=== PATIENT | female | born 1960 | race Caucasian/White ===

== ENCOUNTER 2018-04-13 21:03 | Inpatient (IN) | payer OTHER, SELFPAY ==
[2018-04-13] VITALS (8 sets, daily range): BP systolic 93–149; BP diastolic 56–87; PULSE 75–81; RESP 13–20; TEMP 35.9–36.2; O2SAT 97–100; BMI 37.2
--- NOTE | 2018-04-13 21:07 | CT_ITS ---
STUDY: CT BRAIN WITHOUT CONTRAST REASON FOR EXAM: Female, 57 years old. Found unresponsive. RADIATION DOSAGE (If Supplied By Facility): CTDIvol = ( 44.99 ) mGy, DLP = ( 779.24 ) mGycm TECHNIQUE: Transaxial CT imaging of the brain was performed without administration of intravenous contrast material. Individualized dose optimization techniques were used for this CT. COMPARISON: None. FINDINGS: Normal soft tissue structures. Normal calvarium. Normal size ventricles and extra-axial spaces for the patient's age. Normal white matter tracts of the cerebral hemispheres. Normal basal ganglia and thalami. Normal brainstem. Normal cerebellum. There is no intracranial hemorrhage. There are no findings of an acute ischemic infarction. Normal visualized paranasal sinuses. CT/Brain/Head without Contrast IMPRESSION: No acute intracranial process. Electronically Signed: Lauren Fabian MD at 22:14 EDT Tel , Service support ,
--- NOTE | 2018-04-13 21:07 | RAD_ITS ---
STUDY: X-RAY CHEST REASON FOR EXAM: Female, 57 years old. Unresponsive. TECHNIQUE: Portable upright COMPARISON: None. FINDINGS: The lungs are clear and expanded. There is no demonstrated pleural abnormality. Normal size heart. Normal mediastinum and fatimah. Normal visualized pulmonary arteries. Normal visualized aortic arch and descending thoracic aorta. Normal visualized thoracic spine. Normal visualized ribs, clavicles, and shoulders. There is no demonstrated abnormality of the visualized soft tissue structures of the upper abdomen. RAD/Chest 1 View (Portable) IMPRESSION: No acute cardiopulmonary process. Electronically Signed: Lauren Fabian MD at 21:46 EDT Tel , Service support ,
--- NOTE | 2018-04-13 21:08 | EKG12_ITS ---
Test Reason : CP Blood Pressure : / mmHG Vent. Rate : 078 BPM Atrial Rate : 078 BPM P-R Int : 174 ms QRS Dur : 090 ms QT Int : 446 ms P-R-T Axes : 068 029 100 degrees QTc Int : 508 ms Normal sinus rhythm Prolonged QT Abnormal ECG Confirmed by ANNMARIE VALDES ([id number]), editor sound ILIA MENDIOLA ([id number]) on 04/26/2018 5:53:12 PM Referred By: DR. VALADEZ Confirmed By:ANNMARIE VALDES
[2018-04-13 21:19] LABS: Absolute Lymphocyte Count 3.07 X10^3/ul (0.83-4.51); Absolute Neutrophil Count 5.2 X10^3/uL (2.0-7.7); Basophil# 0.04 X10^3/uL; Basophil% 0.4 % (0-1); Eosinophil# 0.25 X10^3/uL; Eosinophils% 2.6 % (0-5); Hematocrit 29.8 % (37-47); Hemoglobin 8.2 g/dl (12.0-15.0); Lymphocyte # 3.07 X10^3/ul (4.0); Lymphocyte % 32.3 % (19-41); Mean Corp Hgb Conc 27.5 g/gl (32-36); Mean Corpuscular Volume 61.8 fL (81-99); Mean Platelet Vol. 9.2 fl (6.2-12.0); Monocyte# 0.94 X10^3/uL; Monocyte% 9.9 % (0-10); Neutrophil # 5.19 X10^3/uL (2.7-7.7); Neutrophil % 54.6 % (47-70); Platelet Count 393 K/mm3 (150-450); RBC Distribution Width CV 19.5 % (11.6-14.6); RBC Distribution Width SD 43.6 fl (35.1-43.9); Red Blood Count 4.82 M/mm3 (4.2-5.4); White Blood Count 9.5 K/mm3 (4.4-11.0)
[2018-04-13 21:21] LABS: POSITIVE COUNT NO; POSITIVE DIFFERENTIAL NO
[2018-04-13 21:22] LABS: Differential Indicated SCAN CRITERIA MET; POSITIVE MORPHOLOGY YES
[2018-04-13 21:27] LABS: International Normalized Ratio 1.2; Partial Thromboplast Time 21.3 Seconds (24.1-36.2); Prothrombin Time (Protime)PT. 14.8 SECONDS (11.7-14.9)
[2018-04-13] MEDS: 0.9% Normal Saline 1,000 ML 150 ML IV ×2 (21:30→23:14)
[2018-04-13 21:40] LABS: Allen Test POS; Base Excess -8 mmol/L (-2 to +2); Bicarbonate 18.5 mmol/L (22-26); Blood Gas Specimen Type ART; O2 Delivery Device Nasal Can; PO2 94 mmHG (75-100); SITE R Radial; SO2 96 % (95-99); Time Given 2135; Total Carbon Dioxide 20 mmol/L; pCO2 38.3 mmHg (35-45); pH 7.29 (7.35-7.45)
[2018-04-13 21:44] LABS: Anisocytosis 2+; Hypochromasia 1+; Microcytosis 2+; Platelet Estimate ADEQUATE (ADEQ); Platelet Morphology LARGE
[2018-04-13 21:45] LABS: Ovalocyte RARE
[2018-04-13 21:47] LABS: ALB/GLOB Ratio 0.8 RATIO (0.9-2.4); AST(SGOT) 23 U/L (15-37); Alanine Aminotransfer ALT/SGPT 25 U/L (13-56); Albumin, Serum 3.5 g/dL (3.2-5.0); Alkaline Phosphatase 151 U/L (45-117); Anion Gap 14 (5-15); BUN 20 mg/dL (7-18); BUN/Creat Ratio 18.7 RATIO (10-20); Calcium,Total 8.2 mg/dL (8.5-10.1); Chloride 106 mmol/L (98-107); Creatinine, Serum 1.07 mg/dL (0.55-1.02); EST Glomerular Filtration Rate 56 mL/min (>60); Est Glom Filt Rate - Afr Amer 67 mL/min (>60); Estimated Creatinine Clearance 48.88 ml/min; Globulin 4.4 g/dL (2.2-4.2); Glucose 44 mg/dL (74-106); Lipase 79 U/L (73-393); Potassium 3.3 mmol/L (3.5-5.1); Protein, Total 7.9 g/dL (6.4-8.2); Sodium Level 140 mmol/L (136-145)
[2018-04-13 21:48] LABS: Bacteria 0 SEEN /hpf (None Seen); Red Blood Cells-Urine 0 SEEN /hpf (0-5)
[2018-04-13] MEDS: Dextrose 50%-Water 25 GM/50 ML DISP.SYRIN IV (21:50)
--- NOTE | 2018-04-13 21:50 | ED.RN ---
AWARE OF BS 44
[2018-04-13 21:53] LABS: Acetaminophen (Tylenol) Level < 2.0 ug/mL (10.0-30.0); Salicylate < 1.7 mg/dL (2.8-20.0)
[2018-04-13 22:00] LABS: Color, Urine Yellow (Yellow); Glucose, Dipstick 100 mg/dl (Normal); Ketone-Dipstick 5 mg/dl (Negative); Leukocyte Esterase-Dipstick Negative /ul (Negative); Nitrite-Dipstick Negative (Negative); Occult Blood-Urine Negative /ul (Negative); Protein-Dipstick 15 mg/dl (Negative); Urine Bilirubin Dipstick Negative (Negative); Urine Clarity Sl. Cloudy (Clear); Urine Urobilinogen 1 mg/dl (Normal)
[2018-04-13 22:14] LABS: Hyaline Cast 10-25 SEEN /lpf (0-5)
[2018-04-13 22:19] LABS: Iron 11 ug/dL (50-170); Iron Binding Capacity,Total 522 ug/dL (250-450); PERCENT IRON SATURATION 2.1 % (15.0-55.0)
[2018-04-13 22:19] LABS: Mucous, Urine 2+ /hpf (<or=2+); Squamous Epithelial Cells - UA 0-5 SEEN /hpf (5-10); White Blood Cells 0-5 SEEN /hpf (0-5)
[2018-04-13 22:21] LABS: Bedside Glucose 170 mg/dL (70-110)
[2018-04-13] MEDS: Etomidate 20 MG/10 ML Vial IV (22:28)
[2018-04-13] MEDS: Rocuronium Bromide 50 MG/5 ML Vial 100 MG IV (22:29)
[2018-04-13 22:32] LABS: Amphetamine Urine VISTA NEGATIVE (<1000 ng/mL); Barbiturate Urine VISTA NEGATIVE (< 200 ng/mL); Benzodiazepine Urine VISTA POSITIVE (< 200 ng/mL); Cocaine Urine VISTA NEGATIVE (< 300 ng/mL); Ecstacy Urine VISTA NEGATIVE (< 500 ng/mL); Methadone Urine VISTA NEGATIVE (< 300 ng/mL); PCP Urine VISTA NEGATIVE (< 25 ng/mL); THC Urine VISTA NEGATIVE (< 50 ng/mL); Vista UDS pH Range 5
[2018-04-13 22:32] LABS: Lactic Acid 5.7 mmol/L (0.4-2.0)
--- NOTE | 2018-04-13 22:33 | RAD_ITS ---
STUDY: X-RAY CHEST REASON FOR EXAM: Female, 57 years old. Endotracheal tube and orogastric tube placement. TECHNIQUE: Portable frontal COMPARISON: April 13, 2018 at 9:14 PM FINDINGS: There is an endotracheal tube in place with its tip within the proximal right mainstem bronchus. There is an orogastric tube with its tip beyond the inferior margin of the image. No new focal consolidation seen. Normal size heart. Normal mediastinum and fatimah. Normal visualized pulmonary arteries. Normal visualized aortic arch and descending thoracic aorta. Normal visualized thoracic spine. Normal visualized ribs, clavicles, and shoulders. There is no demonstrated abnormality of the visualized soft tissue structures of the upper abdomen. RAD/Chest 1 View (Portable) IMPRESSION: Endotracheal tube within the expected region of the proximal mainstem bronchus, recommend retracting the endotracheal tube by 4 to 5 cm. Oral gastric tube tip beyond the inferior margin of the image, recommend repeat imaging including more of the mid abdomen. Electronically Signed: Lauren Fabian MD at 23:00 EDT Tel , Service support ,
--- NOTE | 2018-04-13 22:40 | ED.RN ---
DR. VALADEZ MADE AWARE OF LACTIC ACID 5.7.
[2018-04-13] MEDS: Propofol 10MG/Ml 1,000 MG/100 ML Bottle 2.949 MG CONT INF (22:59)
--- NOTE | 2018-04-13 23:04 | ED.VISSUMM ---
- ER Visit Summary Date of Service: 04/13/18 Chief Complaint: Unresponsive History of Present Illness: The patient is a 57 F who reportedly got into a argument with her daughter over the phone. Shortly thereafter she went into the bedroom. The next time he has been saw the patient she was speaking unintelligibly. She progressively became increasingly less responsive and eventually squad was called. Unknown what she took. She reports that she has had alcohol. Patient cannot provide information. It is not clear what the patient took or how much. Family does bring a bag of medications and that belonged to the patient. The tells me that she has Valium at home but this is not in the bag of medicines. There are numerous medications in this bag but it is unclear of exactly what she is taking. Physical Examination: Afebrile vital signs are stable Gen: Well-nourished well-developed Head: Normocephalic atraumatic Eyes: Perrl EOMI pupils are 3 mm bilaterally and sluggishly reactive ENT: TMs clear no rhinorrhea moist mucous membranes there is minimal gag. Neck: Supple no lymphadenopathy no JVD nontender CVS: Regular rate rhythm no murmurs normal S1-S2 Respiratory: No distress clear to auscultation bilaterally chest nontender Abdomen: Soft nontender nondistended normal bowel sounds no masses Back: Nontender Extremity: Nontender no edema Skin: Normal color no rash Neuro: Patient is stuporous. She does move all 4 extremities at times. Cold caloric testing shows minimal response to it Psych: Unable to assess Test Results: EKG shows a sinus rhythm at a rate of 78. Chest x-ray is no acute disease. Head CT negative. Hemoglobin 8.2 with a very low MCV. Iron studies were ordered. Troponin negative. Lactic acid 5.7. Ketones negative. Glucose at 44. Alcohol 152. Urine drugs abuse positive for benzodiazepines. Initial ABG showed a pH of 7.29 and bicarbonate 18 PCO2 of 38.3. PaO2 of 94. Emergency Department Course and Treatment: Patient became even less responsive when she came back from head CT. Decision was made to intubate her to protect her airway. Patient was intubated using etomidate and rocuronium. A 8-0 endotracheal tube was passed on the first attempt without any difficulty and secured in place at 24 cm. Patient has required very minimal sedation. She has been receiving IV fluids. Amp of D50 was given and repeat blood sugar was 179. This came down to 102. The next blood sugars currently pending. We will be checking every hour blood sugars. Family brought in a trash bag of her medications. She takes Effexor and Ritalin. Impression: 1. Alcohol intoxication 2. Unknown drug overdose 3. Metabolic acidosis 4. Anemia 5. Hyperglycemia 6. Intubation by physician This note was generated with [employer] dictation software. It may contain incorrect words, spelling, and punctuation that were not noted in review of the chart prior to signing ED Disposition - Plan for ED Patient: Chief Complaint: Unresponsive Referrals: Care Physician,No Primary [Primary Care Provider] -
[2018-04-13 23:16] LABS: Bedside Glucose 102 mg/dL (70-110)
[2018-04-13 23:51] LABS: Allen Test POS; Base Excess -5 mmol/L (-2 to +2); Bicarbonate 20.7 mmol/L (22-26); Blood Gas Specimen Type ART; FI02 35; Mode A-C; O2 Delivery Device Vent; PEEP 5; PO2 144 mmHG (75-100); RR 14; SITE L Radial; SO2 99 % (95-99); Time Given 2340; Total Carbon Dioxide 22 mmol/L; Vt 450; pCO2 39.8 mmHg (35-45); pH 7.33 (7.35-7.45)
--- NOTE | 2018-04-13 23:56 | HP.PCM_ITS ---
Problem List (1) Drug overdose Status: Acute Qualifiers: Encounter type: initial encounter (2) Alcohol intoxication Status: Acute Qualifiers: Complication of substance-induced condition: with unspecified complication Qualified Code(s): F10.929 - Alcohol use, unspecified with intoxication, unspecified History of Present Illness Date of Admission: 04/13/18 Chief Complaint: Altered mental status, suspected drug overdose, alcohol intoxication The patient is a 57 year old F who was seen in the emergency room at [facility] after being brought in by squad at the direction of her whom she lives with. states that he lives in the same house with his but has minimal contact with her, recently she was arrested for spousal abuse against him and was given probation, recently he states that she violated her probation by testing positive for benzodiazepines- states that she has been seeing a psychologist for many years and recently last year her psychologist retired and her new psychologist recommended stopping some of her medications such as Valium that she had been on for many years. Today, according to the , the patient had a conversation with their daughter and became very angry over the phone, following this, the stated that he found her on their deck slumped over in a seated position and was not responding appropriately. was unable to give the exact timeframe between the conversation the patient had with her daughter and when he found her on the deck, he seems to think it was several hours. Patient has a history of depression and is currently on medication per her psychologist. According to the emergency room physician, patient was initially drowsy when she came to the emergency room but did have a gag reflex, as time went on in the emergency room however, patient began to become more somnolent, the emergency room physician felt that the patient needed intubation and she was put on a ventilator. Labs were obtained which were remarkable for a lactate of 5.7, glucose was 44, hemoglobin was 8.2, BUN was 20, potassium was 3.3, creatinine was 1.07, tox screen was positive for benzodiazepines, and patient's blood alcohol level was 152. CT of the brain showed no acute process, chest x- ray was unremarkable. Patient will be admitted to ICU for drug overdose-I examined some of the pill bottles that the patient's brought to the emergency room, there was one pill bottle that was unmarked and appeared to have 5 mg Valium tablets in the bottle-there are only a few of them present. There were several other bottles that the has been brought to the emergency room , some of these medications had not been used and 2-3 years and appeared to have the original number of tablets in the bottles (such as tramadol) and other medications that were missing some tablets but were prescribed 1-2 years ago. Finally, patient's stated that the patient wrote a note on her computer to their son, stated that the note blamed the and daughter for not understanding the patient and stated that she would miss her son. According to the , patient is never tried to hurt herself before and has never taken a drug overdose before. Initial blood gases on 2 L revealed the patient to have metabolic acidosis, this appear to be improved on the second set of blood gases on the ventilator. Patient will be admitted to ICU and she will be seen by pulmonary medicine. Past Medical History Allergies shellfish derived Allergy (Verified 04/13/18 21:34) Shortness of breath Home Medications: Ambulatory Orders Medication Instructions Recorded Albuterol IH (ProAir) [Proair Hfa 1 - 2 puff INHALATION Q4H PRN PRN 04/13/18 (SP)Vent Pts] Hydroxyzine HCl 25 mg PO BID 04/13/18 Loratadine [Claritin] 10 mg PO DAILY 04/13/18 Meloxicam [Mobic] 15 mg PO DAILY 04/13/18 Naltrexone HCl/Bupropion HCl 2 tab PO BID 04/13/18 [Contrave ER 8-90 mg Tablet] Tramadol HCl [Ultram] 50 mg PO Q12H 04/13/18 Venlafaxine XR [Effexor Xr] 150 mg PO BID 04/13/18 Surgical History: - - Gastric bypass Psychiatric History: Depression OIM ARCHITECT History: No pertinent OIM ARCHITECT history Lives: Spouse/ Significant Other Smoking Status: Current some day smoker Tobacco Use: Cigarettes Alcohol: None - According to patient's , he does not know if the patient drinks on a daily basis, according to the , she has not had a diagnosis of alcoholism in the past Drugs: - - Recently positive for benzodiazepines according to the patient's Review of Systems Comment: Review of systems was unobtainable, patient was sedated and on the ventilator at the time of my examination, medical information was obtained from the patient's who is in the room at the time of my examination VTE Information - Inpt Only VTE Present on Admission: No VTE Mechan Device Prophylaxis: None VTE Pharm Prophylaxis ordered?: Yes Patient Problems: Active and Suspected Problems Drug overdose (Acute) Alcohol intoxication (Acute) - Physical Exam General: - - Patient is sedated and on the ventilator HEENT: Atraumatic, PERRLA, Normocephalic Oral: Moist Mucosa Neck: Supple, No JVD, Negative Carotid Bruits, No Nuchal Rigidity, Trachea Midline, Thyroid Normal Size and Texture Lungs: Clear to auscultation, Normal air movement, No rhonchi, No wheeze, No rales Cardiovascular: Regular rate, Regular Rhythm, Normal S1, Normal S2, No murmurs, No Ectopic Activity, PMI Normal, No rub noted, No Gallop Abdomen: Bowel Sounds Present, Soft, Non Tender, Non-Distended, No hernias noted Extremities: No clubbing, No cyanosis, No edema, Capillary Refill Less than 3 Seconds Skin: No rashes, No breakdown Neurological: Cranial nerves II-XII grossly intact, Neuro grossly intact, - - Patient moves all extremities, she does not follow commands Psych/Mental Status: - - Patient is sedated and on the ventilator, she appears restless Vital Signs Temp Pulse Resp BP Pulse Ox 96.7 F L 75 14 148/86 H 100 04/13/18 23:52 04/13/18 23:52 04/13/18 23:52 04/13/18 23:52 04/13/18 23:52 Oxygen Flow Rate (L/min) 2 Oxygen Delivery Method Mechanical Ventilator Weight: 98.3 kg Body Mass Index (BMI) 37.2 Finger Stick Blood Glucose 133 Laboratory Tests Past 24 Hrs 04/13/18 04/13/18 04/13/18 21:03 21:03 21:03 WBC 9.5 RBC 4.82 Hgb 8.2 L Hct 29.8 L MCV 61.8 L MCH 17.0 L MCHC 27.5 L RDW 19.5 H RDW Differential 43.6 Plt Count 393 MPV 9.2 Immature Gran % (Auto) 0.200 Neut % (Auto) 54.6 Lymph % (Auto) 32.3 [place] % (Auto) 9.9 Eos % (Auto) 2.6 Baso % (Auto) 0.4 Absolute Neuts (auto) 5.2 Absolute Lymphs (auto) 3.07 Total Counted Not Reportable Platelet Estimate ADEQUATE Plt Morphology Comment LARGE Hypochromasia 1+ Anisocytosis 2+ Microcytosis 2+ Ovalocytes RARE PT 14.8 INR 1.2 APTT 21.3 L Specimen Type Sample Site pH Bicarbonate Actual POC Total CO2 Base Excess O2 Saturation O2 % ABG pCO2 ABG pO2 Artie Test Respiration Rate O2 Delivery Device Liter Flow Vent Mode Tidal Volume POC PEEP Blood Gas Notified Whom Blood Gas Notified Time Sodium 140 Potassium 3.3 L Chloride 106 Carbon Dioxide 20.0 L Anion Gap 14 BUN 20 H Creatinine 1.07 H Estim Creat Clear Calc 48.88 Est GFR (MDRD) Af Amer 67 Est GFR (MDRD) Non-Af 56 L BUN/Creatinine Ratio 18.7 Glucose 44 L* Lactic Acid Calcium 8.2 L Iron TIBC Iron Saturation Total Bilirubin 0.20 AST 23 ALT 25 Alkaline Phosphatase 151 H Troponin I < 0.015 Total Protein 7.9 Albumin 3.5 Globulin 4.4 H Albumin/Globulin Ratio 0.8 L Lipase 79 Urine Color Urine Clarity Urine pH Ur Specific [place] Urine Protein Urine Glucose (UA) Urine Ketones Urine Occult Blood Urine Nitrite Urine Bilirubin Urine Urobilinogen Ur Leukocyte Esterase Urine RBC Urine WBC Ur Squamous Epith Cells Urine Bacteria Hyaline Casts Urine Mucus Salicylates Urine Opiates Screen Urine Methadone Screen Acetaminophen Ur Barbiturates Screen Ur Phencyclidine Scrn Ur Amphetamines Screen U Methamphetamin-MDMA U Benzodiazepines Scrn Urine Cocaine Screen U Cannabinoids Screen Ur Drug Screen Comment Ethyl Alcohol Acetone Level 04/13/18 04/13/18 04/13/18 21:03 21:03 21:03 WBC RBC Hgb Hct MCV MCH MCHC RDW RDW Differential Plt Count MPV Immature Gran % (Auto) Neut % (Auto) Lymph % (Auto) [place] % (Auto) Eos % (Auto) Baso % (Auto) Absolute Neuts (auto) Absolute Lymphs (auto) Total Counted Platelet Estimate Plt Morphology Comment Hypochromasia Anisocytosis Microcytosis Ovalocytes PT INR APTT Specimen Type Sample Site pH Bicarbonate Actual POC Total CO2 Base Excess O2 Saturation O2 % ABG pCO2 ABG pO2 Artie Test Respiration Rate O2 Delivery Device Liter Flow Vent Mode Tidal Volume POC PEEP Blood Gas Notified Whom Blood Gas Notified Time Sodium Potassium Chloride Carbon Dioxide Anion Gap BUN Creatinine Estim Creat Clear Calc Est GFR (MDRD) Af Amer Est GFR (MDRD) Non-Af BUN/Creatinine Ratio Glucose Lactic Acid Calcium Iron 11 L TIBC 522 H Iron Saturation 2.1 L Total Bilirubin AST ALT Alkaline Phosphatase Troponin I Total Protein Albumin Globulin Albumin/Globulin Ratio Lipase Urine Color Urine Clarity Urine pH Ur Specific [place] Urine Protein Urine Glucose (UA) Urine Ketones Urine Occult Blood Urine Nitrite Urine Bilirubin Urine Urobilinogen Ur Leukocyte Esterase Urine RBC Urine WBC Ur Squamous Epith Cells Urine Bacteria Hyaline Casts Urine Mucus Salicylates < 1.7 L Urine Opiates Screen Urine Methadone Screen Acetaminophen < 2.0 L Ur Barbiturates Screen Ur Phencyclidine Scrn Ur Amphetamines Screen U Methamphetamin-MDMA U Benzodiazepines Scrn Urine Cocaine Screen U Cannabinoids Screen Ur Drug Screen Comment Ethyl Alcohol 152.0 Acetone Level 04/13/18 04/13/18 04/13/18 21:03 21:27 21:37 WBC RBC Hgb Hct MCV MCH MCHC RDW RDW Differential Plt Count MPV Immature Gran % (Auto) Neut % (Auto) Lymph % (Auto) [place] % (Auto) Eos % (Auto) Baso % (Auto) Absolute Neuts (auto) Absolute Lymphs (auto) Total Counted Platelet Estimate Plt Morphology Comment Hypochromasia Anisocytosis Microcytosis Ovalocytes PT INR APTT Specimen Type ART Sample Site R Radial pH 7.29 L Bicarbonate Actual 18.5 L POC Total CO2 20 Base Excess -8 L O2 Saturation 96 O2 % ABG pCO2 38.3 ABG pO2 94 Artie Test POS Respiration Rate O2 Delivery Device Nasal Can Liter Flow 2.0 Vent Mode Tidal Volume POC PEEP Blood Gas Notified Whom ED Blood Gas Notified Time 2134 Sodium Potassium Chloride Carbon Dioxide Anion Gap BUN Creatinine Estim Creat Clear Calc Est GFR (MDRD) Af Amer Est GFR (MDRD) Non-Af BUN/Creatinine Ratio Glucose Lactic Acid 5.7 H* Calcium Iron TIBC Iron Saturation Total Bilirubin AST ALT Alkaline Phosphatase Troponin I Total Protein Albumin Globulin Albumin/Globulin Ratio Lipase Urine Color Urine Clarity Urine pH Ur Specific [place] Urine Protein Urine Glucose (UA) Urine Ketones Urine Occult Blood Urine Nitrite Urine Bilirubin Urine Urobilinogen Ur Leukocyte Esterase Urine RBC Urine WBC Ur Squamous Epith Cells Urine Bacteria Hyaline Casts Urine Mucus Salicylates Urine Opiates Screen Urine Methadone Screen Acetaminophen Ur Barbiturates Screen Ur Phencyclidine Scrn Ur Amphetamines Screen U Methamphetamin-MDMA U Benzodiazepines Scrn Urine Cocaine Screen U Cannabinoids Screen Ur Drug Screen Comment Ethyl Alcohol Acetone Level NEGATIVE 04/13/18 04/13/18 04/13/18 21:45 21:45 23:47 WBC RBC Hgb Hct MCV MCH MCHC RDW RDW Differential Plt Count MPV Immature Gran % (Auto) Neut % (Auto) Lymph % (Auto) [place] % (Auto) Eos % (Auto) Baso % (Auto) Absolute Neuts (auto) Absolute Lymphs (auto) Total Counted Platelet Estimate Plt Morphology Comment Hypochromasia Anisocytosis Microcytosis Ovalocytes PT INR APTT Specimen Type ART Sample Site L Radial pH 7.33 L Bicarbonate Actual 20.7 L POC Total CO2 22 Base Excess -5 L O2 Saturation 99 O2 % 35 ABG pCO2 39.8 ABG pO2 144 H Artie Test POS Respiration Rate 14 O2 Delivery Device Vent Liter Flow Vent Mode A-C Tidal Volume 450 POC PEEP 5 Blood Gas Notified Whom ED MD Blood Gas Notified Time 2340 Sodium Potassium Chloride Carbon Dioxide Anion Gap BUN Creatinine Estim Creat Clear Calc Est GFR (MDRD) Af Amer Est GFR (MDRD) Non-Af BUN/Creatinine Ratio Glucose Lactic Acid Calcium Iron TIBC Iron Saturation Total Bilirubin AST ALT Alkaline Phosphatase Troponin I Total Protein Albumin Globulin Albumin/Globulin Ratio Lipase Urine Color Yellow Urine Clarity Sl. Cloudy Urine pH 5.0 Ur Specific [place] 1.020 Urine Protein 15 H Urine Glucose (UA) 100 H Urine Ketones 5 H Urine Occult Blood Negative Urine Nitrite Negative Urine Bilirubin Negative Urine Urobilinogen 1 H Ur Leukocyte Esterase Negative Urine RBC 0 SEEN Urine WBC 0-5 SEEN Ur Squamous Epith Cells 0-5 SEEN Urine Bacteria 0 SEEN Hyaline Casts 10-25 SEEN Urine Mucus 2+ Salicylates Urine Opiates Screen NEGATIVE Urine Methadone Screen NEGATIVE Acetaminophen Ur Barbiturates Screen NEGATIVE Ur Phencyclidine Scrn NEGATIVE Ur Amphetamines Screen NEGATIVE U Methamphetamin-MDMA NEGATIVE U Benzodiazepines Scrn POSITIVE H Urine Cocaine Screen NEGATIVE U Cannabinoids Screen NEGATIVE Ur Drug Screen Comment Ethyl Alcohol Acetone Level POC Glucose 04/13/18 04/13/18 23:08 22:12 POC Glucose 102 170 H Assessment/Plan Active and Suspected Problems Drug overdose (Acute) Alcohol intoxication (Acute) #1 acute drug overdose-most likely secondary to Valium and possibly Vistaril- patient will be admitted to ICU, she will remain on a propofol drip, pulmonary medicine will be consulted #2 need for mechanical ventilation secondary to airway protection and sedation- pulmonary medicine will participate in her care #3 alcohol intoxication #4 major depression #5 iron deficiency anemia-emergency room physician nneka iron levels on the patient, these were low with an iron level of 11, Venofer will be administered, patient was placed on Pepcid IV. It is unknown whether the patient is taking any [id number] medications for pain, according to the patient's , it was recommended that she see pain management for arthritic pain but she chose not to. Patient had a bottle of Mobic, I examined the bottle and most of the Mobic was still in the bottle from 3 years before. She was given to her by PCP she no longer sees #6 hypoglycemia-etiology unclear, this corrected with administration of glucose #7 hypokalemia-mild, labs will be rechecked in the morning #8 mild acidosis-possibly secondary to lactic acidosis, recheck ABG in the morning Code Visit Inpatient E&M: 59429 Init Hosp L3
[2018-04-14] VITALS (25 sets, daily range): BP systolic 145–199; BP diastolic 65–111; PULSE 70–94; RESP 12–20; TEMP 36.2–38.4; O2SAT 91–100; BMI 36.8; BMI 37.2
[2018-04-14 00:31] LABS: Bedside Glucose 127 mg/dL (70-110)
[2018-04-14 01:36] LABS: Reflex Lactate? Y
[2018-04-14] MEDS: 0.9% Normal Saline 1,000 ML 150 ML IV ×3 (02:17→21:00)
[2018-04-14 02:47] LABS: Lactic Acid 2.6 mmol/L (0.4-2.0)
[2018-04-14 03:21] LABS: M R Staph aureus DNA By PCR Negative (Negative); Probe Check PASS; Specimen Processing Control PASS
[2018-04-14] MEDS: Propofol 10MG/Ml 1,000 MG/100 ML Bottle 2.949 MG CONT INF (04:25)
[2018-04-14] MEDS: CHLORHEXIDINE GLUC 2% CLOTH 1 EACH TOWELETTE TOPICAL (04:51)
[2018-04-14] MEDS: Chlorhexidine 15 ML PO (04:51)
[2018-04-14 05:41] LABS: Base Excess -1 mmol/L (-2 to +2); Bicarbonate 21.1 mmol/L (22-26); Blood Gas Specimen Type ART; FI02 30; Mode A-C; O2 Delivery Device Vent; PEEP 5; PO2 123 mmHG (75-100); RR 19; SITE R Radial; SO2 99 % (95-99); Time Given 545; Total Carbon Dioxide 22 mmol/L; Vt 7; pCO2 24.9 mmHg (35-45); pH 7.54 (7.35-7.45)
[2018-04-14] MEDS: Heparin Injection (Vial) 5,000 UNIT/ML VIAL 5000 UNIT SC ×3 (05:55→21:01)
[2018-04-14 06:01] LABS: Bedside Glucose 109 mg/dL (70-110)
[2018-04-14 06:12] LABS: Hematocrit 28.9 % (37-47); Hemoglobin 8.2 g/dl (12.0-15.0); Mean Corp Hgb Conc 28.4 g/gl (32-36); Mean Corpuscular Hgb 17.3 pg (27.0-32.0); Mean Corpuscular Volume 61.1 fL (81-99); Mean Platelet Vol. 9.5 fl (6.2-12.0); Platelet Count 410 K/mm3 (150-450); RBC Distribution Width CV 19.6 % (11.6-14.6); RBC Distribution Width SD 43.2 fl (35.1-43.9); Red Blood Count 4.73 M/mm3 (4.2-5.4); White Blood Count 11.2 K/mm3 (4.4-11.0)
[2018-04-14 06:18] LABS: Scan Indicated on CBC? Y/N YES- FLAGS NOTED
[2018-04-14 06:21] LABS: Anion Gap 10 (5-15); BUN 11 mg/dL (7-18); BUN/Creat Ratio 15.6 RATIO (10-20); Calcium,Total 7.8 mg/dL (8.5-10.1); Chloride 105 mmol/L (98-107); Creatinine, Serum 0.71 mg/dL (0.55-1.02); EST Glomerular Filtration Rate 90 mL/min (>60); Est Glom Filt Rate - Afr Amer 109 mL/min (>60); Estimated Creatinine Clearance 73.67 ml/min; Glucose 108 mg/dL (74-106); Potassium 4.2 mmol/L (3.5-5.1); Sodium Level 139 mmol/L (136-145)
[2018-04-14 06:40] LABS: Differential Comment SCANNED
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
--- NOTE | 2018-04-14 06:47 | PCM.CON.CC ---
Problem List (1) Drug overdose Status: Acute Qualifiers: Encounter type: initial encounter (2) Alcohol intoxication Status: Acute Qualifiers: Complication of substance-induced condition: with unspecified complication Qualified Code(s): F10.929 - Alcohol use, unspecified with intoxication, unspecified Reason for Consult Date of Consultation: 04/14/18 Reason for Consultation: Respiratory failure History of Present Illness: The patient is a 57 year old F, with unclear past medical history, who presented to [facility] after being found with decreased mentation. Patient reportedly had gotten in an argument with her daughter over the phone. History is extremely limited and patient is currently intubated and no family is at the bedside. Reportedly, patient had a bag of medications available. Patient was noted to be hypoglycemic on presentation to the emergency room with a glucose of 44 and an elevated lactate of 5.7. ABG did show a metabolic acidosis and after having CT scan of the head, patient became less responsive, so was intubated. On my arrival, patient was opening her eyes and following commands despite 40 mg of propofol. Patient was transitioned to a CPAP trial. Patient's laboratory workup shows resolution of metabolic acidosis. No significant intervention has had to be repeated for hypoglycemia. Patient was significantly hypertensive overnight, but no intervention was given by the hospitalist. No focal neurologic deficits were appreciated. Patient reportedly has had multiple social difficulties recently resulting in probation and short nursing home's time. Patient reportedly wrote a note on her computer to her son that resembled a suicide note. This could not be confirmed independently. Past Medical History Allergies shellfish derived Allergy (Verified 04/13/18 21:34) Shortness of breath Home Medications: Ambulatory Orders Medication Instructions Recorded Albuterol IH (ProAir) [Proair Hfa 1 - 2 puff INHALATION Q4H PRN PRN 04/13/18 (SP)Vent Pts] Hydroxyzine HCl 25 mg PO BID 04/13/18 Loratadine [Claritin] 10 mg PO DAILY 04/13/18 Meloxicam [Mobic] 15 mg PO DAILY 04/13/18 Naltrexone HCl/Bupropion HCl 2 tab PO BID 04/13/18 [Contrave ER 8-90 mg Tablet] Tramadol HCl [Ultram] 50 mg PO Q12H 04/13/18 Venlafaxine XR [Effexor Xr] 150 mg PO BID 04/13/18 Surgical History: - - Gastric bypass Psychiatric History: Depression 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 This did not show any obvious aspiration, but endotracheal tube was at the cherise. OG was in appropriate position. CT scan of the head was unremarkable. - Physical Exam General: - - RASS +1 to +2. Fair vent synchrony noted. Appears older than stated age. HEENT: Atraumatic, PERRLA, EOMI, Normocephalic, - - No scleral icterus or injection noted. Oral: Moist Mucosa, No Gingival or Mucosal Lesions/ Ulcerations Neck: Supple, No JVD, No Nodes, Trachea Midline Lungs: Clear to auscultation, Normal air movement, No rhonchi, No wheeze, No rales, - - No dullness to percussion Cardiovascular: Normal S1, Normal S2, No murmurs, No rub noted, No Gallop, Tachycardic Abdomen: Bowel Sounds Present, Soft, Non Tender, Non-Distended, Obese Extremities: No clubbing, No cyanosis, No edema Skin: No rashes, No breakdown Musculoskeletal: No Tenderness to Palpation of Joints or Extremities, No Muscle Wasting Lymphatic: No Cervical, Supraclavicular, or Inguinal Adenopathy Neurological: Cranial nerves II-XII grossly intact, Neuro grossly intact, Motor Exam 5/5 strength throughout Psych/Mental Status: Agitated, Anxious, Restless Vital Signs Temp Pulse Resp BP Pulse Ox 37.9 C H 89 12 197/97 H 100 04/14/18 06:00 04/14/18 06:00 04/14/18 06:40 04/14/18 06:00 04/14/18 06:00 Oxygen Delivery Method Mechanical Ventilator Weight: 97.7 kg Body Mass Index (BMI) 36.8 Finger Stick Blood Glucose 127 Intake and Output for Last 24 Hours 04/12/18 04/13/18 04/14/18 23:59 23:59 23:59 Intake Total 784 / 784 Output Total 900 / 900 Balance -116 / -116 Laboratory Tests Past 24 Hrs 04/13/18 04/14/18 04/14/18 23:47 01:15 02:10 WBC RBC Hgb Hct MCV MCH MCHC RDW RDW Differential Plt Count MPV Differential Comment Specimen Type ART Sample Site L Radial pH 7.33 L Bicarbonate Actual 20.7 L POC Total CO2 22 Base Excess -5 L O2 Saturation 99 O2 % 35 ABG pCO2 39.8 ABG pO2 144 H Artie Test POS Respiration Rate 14 O2 Delivery Device Vent Minute Volume Vent Mode A-C Tidal Volume 450 POC PEEP 5 Blood Gas Notified Whom ED MD Blood Gas Notified Time 2340 Sodium Potassium Chloride Carbon Dioxide Anion Gap BUN Creatinine Estim Creat Clear Calc Est GFR (MDRD) Af Amer Est GFR (MDRD) Non-Af BUN/Creatinine Ratio Glucose Lactic Acid 2.6 H Calcium MRSA (PCR) Negative 04/14/18 04/14/18 04/14/18 05:36 05:45 05:45 WBC 11.2 H RBC 4.73 Hgb 8.2 L Hct 28.9 L MCV 61.1 L MCH 17.3 L MCHC 28.4 L RDW 19.6 H RDW Differential 43.2 Plt Count 410 MPV 9.5 Differential Comment SCANNED Specimen Type ART Sample Site R Radial pH 7.54 H Bicarbonate Actual 21.1 L POC Total CO2 22 Base Excess -1 O2 Saturation 99 O2 % 30 ABG pCO2 24.9 L ABG pO2 123 H Artie Test NA Respiration Rate 19 O2 Delivery Device Vent Minute Volume 6.00 Vent Mode A-C Tidal Volume 7 POC PEEP 5 Blood Gas Notified Whom ICU MD Blood Gas Notified Time 545 Sodium 139 Potassium 4.2 Chloride 105 Carbon Dioxide 24.0 Anion Gap 10 BUN 11 Creatinine 0.71 Estim Creat Clear Calc 73.67 Est GFR (MDRD) Af Amer 109 Est GFR (MDRD) Non-Af 90 BUN/Creatinine Ratio 15.6 Glucose 108 H Lactic Acid Calcium 7.8 L MRSA (PCR) POC Glucose 04/14/18 04/14/18 05:51 00:28 POC Glucose 109 127 H Clinical Impression(s) from Imaging Studies Brain CT 04/13/18 21:07 IMPRESSION: No acute intracranial process. Electronically Signed: Lauren Fabian MD at 22:14 EDT Tel , Service support , Chest X-Ray 04/13/18 21:07 IMPRESSION: No acute cardiopulmonary process. Electronically Signed: Lauren Fabian MD at 21:46 EDT Tel , Service support , Chest X-Ray 04/13/18 22:33 IMPRESSION: Endotracheal tube within the expected region of the proximal mainstem bronchus, recommend retracting the endotracheal tube by 4 to 5 cm. Oral gastric tube tip beyond the inferior margin of the image, recommend repeat imaging including more of the mid abdomen. Electronically Signed: Lauren Fabian MD at 23:00 EDT Tel , Service support , Assessment/Plan Active and Suspected Problems Drug overdose (Acute) Alcohol intoxication (Acute) RECOMMENDATIONS: 1. Spontaneous breathing trial with possible extubation 2. Monitor blood sugars with intervention if necessary 3. Obtain further information once patient is extubated 4. Possible crisis evaluation, suicide precautions IMPRESSIONS: 1. Acute respiratory failure secondary to suspected benzodiazepine overdose Patient does have access to Valium and did have a positive alcohol level on presentation. Patient reportedly did write a suicide note on the computer to her son, but this cannot be confirmed at this time. Will attempt to extubate patient as she appears to be able to tolerate protecting her airway at this time. Unclear etiology of hypoglycemia on presentation. Patient may have taken some secretagogues or insulin therapy. We will continue to treat with dextrose as needed. Morning labs showed resolution of acidosis. 2. Chronic pain syndrome/depression/social stressors Complicates care, management, recovery and prognosis. Will likely hold off on reinitiating any antidepressants until crisis evaluation. TIME: 32 minutes critical care time spent addressing patient's acute respiratory failure, possible overdose, review of all data and collaboration with care team. (5:30 AM to 7 AM) Code Visit 9xxxx: [id number] Critical care first hour
--- NOTE | 2018-04-14 06:59 | CON.PCM_ITS ---
Problem List (1) Drug overdose Status: Acute Qualifiers: Encounter type: initial encounter (2) Alcohol intoxication Status: Acute Qualifiers: Complication of substance-induced condition: with unspecified complication Qualified Code(s): F10.929 - Alcohol use, unspecified with intoxication, unspecified Reason for Consult Date of Consultation: 04/14/18 Reason for Consultation: Respiratory failure History of Present Illness: The patient is a 57 year old F, with unclear past medical history, who presented to [facility] after being found with decreased mentation. Patient reportedly had gotten in an argument with her daughter over the phone. History is extremely limited and patient is currently intubated and no family is at the bedside. Reportedly, patient had a bag of medications available. Patient was noted to be hypoglycemic on presentation to the emergency room with a glucose of 44 and an elevated lactate of 5.7. ABG did show a metabolic acidosis and after having CT scan of the head, patient became less responsive, so was intubated. On my arrival, patient was opening her eyes and following commands despite 40 mg of propofol. Patient was transitioned to a CPAP trial. Patient's laboratory workup shows resolution of metabolic acidosis. No significant intervention has had to be repeated for hypoglycemia. Patient was significantly hypertensive overnight, but no intervention was given by the hospitalist. No focal neurologic deficits were appreciated. Patient reportedly has had multiple social difficulties recently resulting in probation and short penitentiary's time. Patient reportedly wrote a note on her computer to her son that resembled a suicide note. This could not be confirmed independently. Past Medical History Allergies shellfish derived Allergy (Verified 04/13/18 21:34) Shortness of breath Home Medications: Ambulatory Orders Medication Instructions Recorded Albuterol IH (ProAir) [Proair Hfa 1 - 2 puff INHALATION Q4H PRN PRN 04/13/18 (SP)Vent Pts] Hydroxyzine HCl 25 mg PO BID 04/13/18 Loratadine [Claritin] 10 mg PO DAILY 04/13/18 Meloxicam [Mobic] 15 mg PO DAILY 04/13/18 Naltrexone HCl/Bupropion HCl 2 tab PO BID 04/13/18 [Contrave ER 8-90 mg Tablet] Tramadol HCl [Ultram] 50 mg PO Q12H 04/13/18 Venlafaxine XR [Effexor Xr] 150 mg PO BID 04/13/18 Surgical History: - - Gastric bypass Psychiatric History: Depression 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 This did not show any obvious aspiration, but endotracheal tube was at the cherise. OG was in appropriate position. CT scan of the head was unremarkable. - Physical Exam General: - - RASS +1 to +2. Fair vent synchrony noted. Appears older than stated age. HEENT: Atraumatic, PERRLA, EOMI, Normocephalic, - - No scleral icterus or injection noted. Oral: Moist Mucosa, No Gingival or Mucosal Lesions/ Ulcerations Neck: Supple, No JVD, No Nodes, Trachea Midline Lungs: Clear to auscultation, Normal air movement, No rhonchi, No wheeze, No rales, - - No dullness to percussion Cardiovascular: Normal S1, Normal S2, No murmurs, No rub noted, No Gallop, Tachycardic Abdomen: Bowel Sounds Present, Soft, Non Tender, Non-Distended, Obese Extremities: No clubbing, No cyanosis, No edema Skin: No rashes, No breakdown Musculoskeletal: No Tenderness to Palpation of Joints or Extremities, No Muscle Wasting Lymphatic: No Cervical, Supraclavicular, or Inguinal Adenopathy Neurological: Cranial nerves II-XII grossly intact, Neuro grossly intact, Motor Exam 5/5 strength throughout Psych/Mental Status: Agitated, Anxious, Restless Vital Signs Temp Pulse Resp BP Pulse Ox 37.9 C H 89 12 197/97 H 100 04/14/18 06:00 04/14/18 06:00 04/14/18 06:40 04/14/18 06:00 04/14/18 06:00 Oxygen Delivery Method Mechanical Ventilator Weight: 97.7 kg Body Mass Index (BMI) 36.8 Finger Stick Blood Glucose 127 Intake and Output for Last 24 Hours 04/12/18 04/13/18 04/14/18 23:59 23:59 23:59 Intake Total 784 / 784 Output Total 900 / 900 Balance -116 / -116 Laboratory Tests Past 24 Hrs 04/13/18 04/14/18 04/14/18 23:47 01:15 02:10 WBC RBC Hgb Hct MCV MCH MCHC RDW RDW Differential Plt Count MPV Differential Comment Specimen Type ART Sample Site L Radial pH 7.33 L Bicarbonate Actual 20.7 L POC Total CO2 22 Base Excess -5 L O2 Saturation 99 O2 % 35 ABG pCO2 39.8 ABG pO2 144 H Artie Test POS Respiration Rate 14 O2 Delivery Device Vent Minute Volume Vent Mode A-C Tidal Volume 450 POC PEEP 5 Blood Gas Notified Whom ED MD Blood Gas Notified Time 2340 Sodium Potassium Chloride Carbon Dioxide Anion Gap BUN Creatinine Estim Creat Clear Calc Est GFR (MDRD) Af Amer Est GFR (MDRD) Non-Af BUN/Creatinine Ratio Glucose Lactic Acid 2.6 H Calcium MRSA (PCR) Negative 04/14/18 04/14/18 04/14/18 05:36 05:45 05:45 WBC 11.2 H RBC 4.73 Hgb 8.2 L Hct 28.9 L MCV 61.1 L MCH 17.3 L MCHC 28.4 L RDW 19.6 H RDW Differential 43.2 Plt Count 410 MPV 9.5 Differential Comment SCANNED Specimen Type ART Sample Site R Radial pH 7.54 H Bicarbonate Actual 21.1 L POC Total CO2 22 Base Excess -1 O2 Saturation 99 O2 % 30 ABG pCO2 24.9 L ABG pO2 123 H Artie Test NA Respiration Rate 19 O2 Delivery Device Vent Minute Volume 6.00 Vent Mode A-C Tidal Volume 7 POC PEEP 5 Blood Gas Notified Whom ICU MD Blood Gas Notified Time 545 Sodium 139 Potassium 4.2 Chloride 105 Carbon Dioxide 24.0 Anion Gap 10 BUN 11 Creatinine 0.71 Estim Creat Clear Calc 73.67 Est GFR (MDRD) Af Amer 109 Est GFR (MDRD) Non-Af 90 BUN/Creatinine Ratio 15.6 Glucose 108 H Lactic Acid Calcium 7.8 L MRSA (PCR) POC Glucose 04/14/18 04/14/18 05:51 00:28 POC Glucose 109 127 H Clinical Impression(s) from Imaging Studies Brain CT 04/13/18 21:07 IMPRESSION: No acute intracranial process. Electronically Signed: Lauren Fabian MD at 22:14 EDT Tel , Service support , Chest X-Ray 04/13/18 21:07 IMPRESSION: No acute cardiopulmonary process. Electronically Signed: Lauren Fabian MD at 21:46 EDT Tel , Service support , Chest X-Ray 04/13/18 22:33 IMPRESSION: Endotracheal tube within the expected region of the proximal mainstem bronchus, recommend retracting the endotracheal tube by 4 to 5 cm. Oral gastric tube tip beyond the inferior margin of the image, recommend repeat imaging including more of the mid abdomen. Electronically Signed: Lauren Fabian MD at 23:00 EDT Tel , Service support , Assessment/Plan Active and Suspected Problems Drug overdose (Acute) Alcohol intoxication (Acute) RECOMMENDATIONS: 1. Spontaneous breathing trial with possible extubation 2. Monitor blood sugars with intervention if necessary 3. Obtain further information once patient is extubated 4. Possible crisis evaluation, suicide precautions IMPRESSIONS: 1. Acute respiratory failure secondary to suspected benzodiazepine overdose Patient does have access to Valium and did have a positive alcohol level on presentation. Patient reportedly did write a suicide note on the computer to her son, but this cannot be confirmed at this time. Will attempt to extubate patient as she appears to be able to tolerate protecting her airway at this time. Unclear etiology of hypoglycemia on presentation. Patient may have taken some secretagogues or insulin therapy. We will continue to treat with dextrose as needed. Morning labs showed resolution of acidosis. 2. Chronic pain syndrome/depression/social stressors Complicates care, management, recovery and prognosis. Will likely hold off on reinitiating any antidepressants until crisis evaluation. TIME: 32 minutes critical care time spent addressing patient's acute respiratory failure, possible overdose, review of all data and collaboration with care team. (5:30 AM to 7 AM) Code Visit 9xxxx: [id number] Critical care first hour
--- NOTE | 2018-04-14 07:00 | RAD_ITS ---
STUDY: X-RAY CHEST REASON FOR EXAM: Female, 57 years old. Fever. Drug overdose. TECHNIQUE: Single AP portable view of the chest. COMPARISON: Comparison is made with prior examination dated April 13, 2018. FINDINGS: The endotracheal tube and orogastric tube have been removed. EKG electrodes are seen. Elevation of the right hemidiaphragm. The lungs are clear. There is no demonstrated pleural abnormality. Normal size heart. Normal mediastinum and fatimah. Normal visualized pulmonary arteries. Normal visualized aortic arch and descending thoracic aorta. Normal visualized thoracic spine. Normal visualized ribs, clavicles, and shoulders. There is no demonstrated abnormality of the visualized soft tissue structures of the upper abdomen. RAD/Chest 1 View (Portable) IMPRESSION: Normal x-ray examination of the chest. Electronically Signed: Wiliam Robledo MD at 11:32 EDT Tel [phone], Service support ,
[2018-04-14 07:11] LABS: Bedside Glucose 127 mg/dL (70-110)
[2018-04-14 07:11] LABS: Bedside Glucose 133 mg/dL (70-110)
[2018-04-14 07:31] LABS: Albumin, Serum 3.3 g/dL (3.2-5.0); Ferritin 4 ng/mL (8-252); Magnesium 1.9 mg/dL (1.6-2.6); Phosphorus 2.3 mg/dL (2.5-4.9)
--- NOTE | 2018-04-14 07:45 | NURSING ---
restraints removed at 0705 immediately after extubation
--- NOTE | 2018-04-14 08:45 | NURSING ---
This RN had lengthy discussion with pt about events prior to admission. Pt admits to longstanding history of depression, anxiety, marriage infidelity, and altered family relationships. Pt described argument with her daughter last night prior to admission and that at the end of the argument, she took a handful of valium and washed it down with disaronno in an attempt to kill herself. She denies ever having attempted suicide in the past. She denies current feelings of intent to harm herself and is eager to seek treatment. Dr. Hess now at bedside. Pt's was allowed to come back to room and is present during discussion. Pt tearful during assessment.
--- NOTE | 2018-04-14 09:41 | CASEMGMT ---
Pt is ready to be seen by crisis as per physician. GABRIEL spoke w/Homa at [facility], she states it is difficult to place patients until they have been stepdown status for 12-24 hours. GABRIEL spoke w/physician, she will put in order for pt to be stepdown status, however pt is stable at this time. GABRIEL called Homa back at [facility], she reiterated that historically it has been nearly impossible to place patients until they have been on stepdown status for 12-24 hours. Homa will see if anyone can come today to do the initial assessment, will let this SW know. SOURAV Mcneil, INSURANCE COLLECTOR
--- NOTE | 2018-04-14 10:43 | CASEMGMT ---
SW spoke w/Daniel from crisis, he states someone will be here this afternoon to see the pt. GABRIEL let ICU know. SOURAV Mcneil, GYPSUM BLOCK SETTER
--- NOTE | 2018-04-14 14:13 | NURSING ---
Crisis counselor at bedside
[2018-04-14] MEDS: Ferrous Sulfate 325 MG Tablet PO (15:29)
[2018-04-14] MEDS: Atenolol 25 MG Tablet PO (15:29)
--- NOTE | 2018-04-14 17:51 | NURSING ---
[facility] called into unit. Informed that pt has been declined. [facility] phoned at this time in order to have cardroom worker call back to retry placement.
--- NOTE | 2018-04-14 17:59 | NURSING ---
Cameron from crisis returned phone call. He will be attempting to call other facilities to try to arrange placement and calling back. Pt and updated.
--- NOTE | 2018-04-14 21:20 | NURSING ---
Pt. aware that no facility will accept pt. until she has been off of the ventilator for at least 24hrs., so pt. will remain here overnight. Pt. verbalized understanding that crisis will try to find placement again in the morning.
[2018-04-15 02:47] VITALS: BP 152/76; PULSE 78; RESP 17; TEMP 36.6; O2SAT 100
[2018-04-15] MEDS: 0.9% Normal Saline 1,000 ML 150 ML IV (03:50)
[2018-04-15] MEDS: Heparin Injection (Vial) 5,000 UNIT/ML VIAL 5000 UNIT SC (05:24)
--- NOTE | 2018-04-15 06:36 | PCM.PN.INT ---
Subjective: Patient successfully extubated yesterday and has been weaned to room air. Patient has been accepted for crisis evaluation, but transfer was delayed secondary to recent extubation. Patient did spike a fever overnight, but states that she feels back to her baseline. Patient appears to be in a very good mood at this time and states that she had good dreams, which she states is rare for her. Patient denies any reductive cough, sinus congestion or dysuria. Objective: Morning chest x-ray was personally reviewed and shows no infiltrates. There is a slight elevation of the right hemidiaphragm consistent with atelectasis. General: Alert, Oriented x3, Cooperative, No apparent distress, Well developed, Well nourished, - - Speaking in full sentences. HEENT: Atraumatic, PERRLA, EOMI, Normocephalic, - - No scleral icterus or injection noted. Oral: Moist Mucosa, No Gingival or Mucosal Lesions/ Ulcerations Neck: Supple, No JVD, No Nodes, Trachea Midline, Thyroid Normal Size and Texture Lungs: Clear to auscultation, Normal air movement, No rhonchi, No wheeze, No rales Cardiovascular: Regular rate, Regular Rhythm, Normal S1, Normal S2, No murmurs, No rub noted, No Gallop Abdomen: Bowel Sounds Present, Soft, Non Tender, Non-Distended, Obese Extremities: No clubbing, No cyanosis, No edema, Capillary Refill Less than 3 Seconds Skin: No rashes, No breakdown Musculoskeletal: No Tenderness to Palpation of Joints or Extremities Lymphatic: No Cervical, Supraclavicular, or Inguinal Adenopathy Neurological: Cranial nerves II-XII grossly intact, Deep Tendon Reflexes 2+/4 and Symmetrical, Neuro grossly intact Psych/Mental Status: Alert and oriented to time, place, person, mood and affect Vital Signs Temp Pulse Resp BP Pulse Ox 36.6 C 78 17 152/76 H 100 04/15/18 02:47 04/15/18 02:47 04/15/18 02:47 04/15/18 02:47 04/15/18 02:47 Oxygen Delivery Method Room Air Weight: 97.7 kg Body Mass Index (BMI) 36.8 Finger Stick Blood Glucose 127 Intake and Output for Last 24 Hours 04/13/18 04/14/18 04/15/18 23:59 23:59 23:59 Intake Total 3958 / 3958 1022 / 1022 Output Total 2350 / 2350 2100 / 2100 Balance 1608 / 1608 -1078 / -1078 Labs (Last 48 Hours) 04/13/18 04/13/18 04/14/18 23:39 23:47 00:28 WBC RBC Hgb Hct MCV MCH MCHC RDW RDW Differential Plt Count MPV Differential Comment Specimen Type ART Sample Site L Radial pH 7.33 L Bicarbonate Actual 20.7 L POC Total CO2 22 Base Excess -5 L O2 Saturation 99 O2 % 35 ABG pCO2 39.8 ABG pO2 144 H Artie Test POS Respiration Rate 14 O2 Delivery Device Vent Minute Volume Vent Mode A-C Tidal Volume 450 POC PEEP 5 Blood Gas Notified Whom ED MD Blood Gas Notified Time 2340 Sodium Potassium Chloride Carbon Dioxide Anion Gap BUN Creatinine Estim Creat Clear Calc Est GFR (MDRD) Af Amer Est GFR (MDRD) Non-Af BUN/Creatinine Ratio Glucose Lactic Acid Calcium Phosphorus Magnesium Ferritin Albumin MRSA (PCR) POC Glucose 133 H 127 H 04/14/18 04/14/18 04/14/18 01:15 02:10 05:36 WBC RBC Hgb Hct MCV MCH MCHC RDW RDW Differential Plt Count MPV Differential Comment Specimen Type ART Sample Site R Radial pH 7.54 H Bicarbonate Actual 21.1 L POC Total CO2 22 Base Excess -1 O2 Saturation 99 O2 % 30 ABG pCO2 24.9 L ABG pO2 123 H Artie Test NA Respiration Rate 19 O2 Delivery Device Vent Minute Volume 6.00 Vent Mode A-C Tidal Volume 7 POC PEEP 5 Blood Gas Notified Whom ICU MD Blood Gas Notified Time 545 Sodium Potassium Chloride Carbon Dioxide Anion Gap BUN Creatinine Estim Creat Clear Calc Est GFR (MDRD) Af Amer Est GFR (MDRD) Non-Af BUN/Creatinine Ratio Glucose Lactic Acid 2.6 H Calcium Phosphorus Magnesium Ferritin Albumin MRSA (PCR) Negative POC Glucose 04/14/18 04/14/18 04/14/18 05:45 05:45 05:45 WBC 11.2 H RBC 4.73 Hgb 8.2 L Hct 28.9 L MCV 61.1 L MCH 17.3 L MCHC 28.4 L RDW 19.6 H RDW Differential 43.2 Plt Count 410 MPV 9.5 Differential Comment SCANNED Specimen Type Sample Site pH Bicarbonate Actual POC Total CO2 Base Excess O2 Saturation O2 % ABG pCO2 ABG pO2 Artie Test Respiration Rate O2 Delivery Device Minute Volume Vent Mode Tidal Volume POC PEEP Blood Gas Notified Whom Blood Gas Notified Time Sodium 139 Potassium 4.2 Chloride 105 Carbon Dioxide 24.0 Anion Gap 10 BUN 11 Creatinine 0.71 Estim Creat Clear Calc 73.67 Est GFR (MDRD) Af Amer 109 Est GFR (MDRD) Non-Af 90 BUN/Creatinine Ratio 15.6 Glucose 108 H Lactic Acid Calcium 7.8 L Phosphorus 2.3 L Magnesium 1.9 Ferritin 4 L Albumin 3.3 MRSA (PCR) POC Glucose 04/14/18 05:51 WBC RBC Hgb Hct MCV MCH MCHC RDW RDW Differential Plt Count MPV Differential Comment Specimen Type Sample Site pH Bicarbonate Actual POC Total CO2 Base Excess O2 Saturation O2 % ABG pCO2 ABG pO2 Artie Test Respiration Rate O2 Delivery Device Minute Volume Vent Mode Tidal Volume POC PEEP Blood Gas Notified Whom Blood Gas Notified Time Sodium Potassium Chloride Carbon Dioxide Anion Gap BUN Creatinine Estim Creat Clear Calc Est GFR (MDRD) Af Amer Est GFR (MDRD) Non-Af BUN/Creatinine Ratio Glucose Lactic Acid Calcium Phosphorus Magnesium Ferritin Albumin MRSA (PCR) POC Glucose 109 Medical Necessity - Tobacco Use Smoking Status: Current some day smoker Tobacco Use: Cigarettes Assessment/Plan All Active Problems Drug overdose (Acute) Alcohol intoxication (Acute) RECOMMENDATIONS: 1. Courage incentive spirometer 2. Await crisis placement 3. Medically stable for discharge from my perspective without antibiotics or steroids IMPRESSIONS: 1. Acute respiratory failure secondary to suspected benzodiazepine overdose Morning chest x-ray shows slight elevation in right hemidiaphragm consistent with atelectasis. Patient did have a slight fever overnight, but is not giving any stigmata of acute infection at this time. Reasonable to initiate incentive spirometer, but antibiotics are likely not indicated at this time. Patient is medically stable for transfer to crisis from my perspective. Await disposition. 2. Chronic pain syndrome/depression/social stressors Complicates care, management, recovery and prognosis. Will likely hold off on reinitiating any antidepressants until crisis evaluation. Code Visit Inpatient E&M: 25081 Subs Hosp L2
--- NOTE | 2018-04-15 08:02 | NURSING ---
Spoke w/ Junie [facility] from [facility]. She is working on placement at [facility] again this morning and will notify us with developments as they arise.
[2018-04-15 08:15] VITALS: BP 171/76; PULSE 80; RESP 16; TEMP 36.6; O2SAT 99
[2018-04-15] MEDS: Ferrous Sulfate 325 MG Tablet PO (08:31)
[2018-04-15] MEDS: Atenolol 25 MG Tablet PO ×2 (08:31→11:44)
--- NOTE | 2018-04-15 10:36 | CASEMGMT ---
Jeaneth from [facility] called looking for Junie Scott w/courtney. SW called Junie at [facility] to let her know, she will follow up w/Jeaneth. SOURAV Mcneil, VIROLOGIST
--- NOTE | 2018-04-15 11:03 | PN_ITS ---
Patient Problems: Active and Suspected Problems Drug overdose (Acute) Alcohol intoxication (Acute) Subjective: Tmax over the past 4 hours was 100.8?F. She is afebrile this morning with a temp of 97.9. Systolic blood pressure is mildly elevated and this is because she is tearful and distraught. The heart rate is within normal limits. She is 99-100% saturated on room air currently. Oral intake on 04/14/2018 was 1080. All lab was personally reviewed. Serum iron was 11 with a TIBC of 522 and a ferritin of 4. This is consistent with iron deficiency. CXR on 04/14 showed atelectasis and this is the likely etiology of the low grade fever on 04/14. She is complaining that she feels as though she has to urinate frequently. - Physical Exam General: Alert, Oriented x3, Cooperative, Well developed, Well nourished, - - crying and upset.....she can not tell me why she is crying HEENT: Atraumatic, PERRLA, EOMI, Normocephalic Oral: Moist Mucosa, No Gingival or Mucosal Lesions/ Ulcerations Neck: Supple, No JVD, Negative Carotid Bruits, No Nodes, No Nuchal Rigidity, Trachea Midline Lungs: Clear to auscultation, Normal air movement, No rhonchi, No wheeze, No rales Cardiovascular: Regular rate, Regular Rhythm, Normal S1, Normal S2, No rub noted , No Gallop Abdomen: Bowel Sounds Present, Soft, Non-Distended, Tender - mild suprapubic tenderness but no guarding. Extremities: No clubbing, No cyanosis, No edema Neurological: Cranial nerves II-XII grossly intact, Neuro grossly intact Psych/Mental Status: Anxious, Impulsive, Restless, - - crying alot Vital Signs Temp Pulse Resp BP Pulse Ox 97.9 F 80 16 171/76 H 99 04/15/18 08:15 04/15/18 08:15 04/15/18 08:15 04/15/18 08:15 04/15/18 08:15 Oxygen Delivery Method Room Air Weight: 215 lb 6.266 oz Body Mass Index (BMI) 36.8 Finger Stick Blood Glucose 127 Intake and Output for Last 24 Hours 04/13/18 04/14/18 04/15/18 23:59 23:59 23:59 Intake Total 3958 / 3958 1022 / 1022 Output Total 2350 / 2350 2500 / 2500 Balance 1608 / 1608 -1478 / -1478 Medical Necessity - Tobacco Use Smoking Status: Current some day smoker Tobacco Use: Cigarettes Assessment/Plan All Active Problems Drug overdose (Acute) Alcohol intoxication (Acute) Impressions 1. Benzodiazepine overdose in suicide attempt. Denies suicidal ideation today. 2. History of ADHD-on Ritalin, Adderall, Effexor and Valium for many years 3. Obesity 4. Hypertension - started on Atenolol on 04/14 5. Iron deficiency anemia 6. Hypokalemia 7. Hypoglycemia 8. Alcohol intoxication 9. Low-grade fever on 04/14/2018 secondary to atelectasis and resolved [facility] has refused the pt once again because of elevated BP. Just started on Atenolol on 04/14. Blood pressure since being started on atenolol has ranged from 152/76-170 / which is mild systolic hypertension. Will increase the dose to 50 mg daily continue to monitor blood pressure. Patient is afebrile with stable vital signs. Her pulse ox on room air ranges from 96-100% today. Her lungs are clear to auscultation and physical exam is unremarkable. Discussed with Dr. Wilks, he agrees patient is stable for discharge. Code Visit Inpatient E&M: 49286 Subs Hosp L2
--- NOTE | 2018-04-15 12:46 | NURSING ---
Spoke w/ Dr. Currie at [facility]. Gave current pt status/VS. Accepted pt. [facility] will be calling back w/ bed assignment. Dr. Hess made aware.
--- NOTE | 2018-04-15 12:54 | PCM.DC.SUM ---
Discharge Date and Diagnosis - Problem List Patient Problems: Active and Suspected Problems Drug overdose (Acute) Alcohol intoxication (Acute) Date of Admission: 04/13/18 Date of Discharge: 04/15/18 - Primary Discharge Diagnosis Active and Suspected Problems Drug overdose (Acute)- benzodiazepine Alcohol intoxication (Acute) Atelectasis Hypokalemia-resolved Hypoglycemia-resolved - Secondary Discharge Diagnosis Iron deficiency anemia ADHD history Obesity Hospital Course and Treatment Imaging Results: Clinical Impression(s) from Imaging Studies Brain CT 04/13/18 21:07 IMPRESSION: No acute intracranial process. Electronically Signed: Lauren Fabian MD at 22:14 EDT Tel , Service support , Chest X-Ray 04/13/18 21:07 IMPRESSION: No acute cardiopulmonary process. Electronically Signed: Lauren Fabian MD at 21:46 EDT Tel , Service support , Chest X-Ray 04/13/18 22:33 IMPRESSION: Endotracheal tube within the expected region of the proximal mainstem bronchus, recommend retracting the endotracheal tube by 4 to 5 cm. Oral gastric tube tip beyond the inferior margin of the image, recommend repeat imaging including more of the mid abdomen. Electronically Signed: Lauren Fabian MD at 23:00 EDT Tel , Service support , Chest X-Ray 04/14/18 07:00 IMPRESSION: Normal x-ray examination of the chest. Electronically Signed: Wiliam Robledo MD at 11:32 EDT Tel [phone], Service support , Consultations 04/14/18 10:48 Consult: Mental Health/Crisis Routine Reason for consult?: crisis to see pt for suicide attempt Date Notified:: 04/14/18 Time notified:: 09:40 Dr. Pramod Wilks-marine pilot Operations: None Procedures: Intubation Summary of Care Provided: The Patient is a 57-year-old female brought to the emergency room at [facility] on 04/13/2018 by squad after her found her sitting on their deck slumped over and not responding appropriately. She has a history of depression and regularly sees a psychologist. She has been on benzodiazepines in the past. She was initially very drowsy in the emergency room but had a gag reflex. She became progressively less responsive and no longer had a gag reflex and was intubated. CBC showed a low hemoglobin at 8.2 with an MCV of 61.8 and an RDW of 19.5. Potassium was low at 3.3 and the serum bicarb was low at 20. BUN was 20 with a creatinine of 1.07. We have no old labs on this patient. Glucose was low at 44 and the lactic acid was elevated at 5.7. Iron studies showed a low serum iron of 11, elevated TIBC at 522 and iron saturation of 2.1. Alkaline phosphatase was mildly increased at 151 and the other LFTs were within normal limits. Lipase was 79. UA had 0-5 WBCs with 10-25 hyaline casts. It was nitrite negative. Acetaminophen and salicylate levels were within normal limits. Drug screen was positive for benzodiazepines and also positive for ethyl alcohol at 152. Brain CT had no acute intracranial processes. Chest x-ray showed no infiltrates, pulmonary vascular congestion or pleural effusions. She was intubated in the emergency room and subsequently transferred to the intensive care unit. Dr. Pramod Wilks, marine pilot, was consulted to participate in management of the ventilator. She was extubated on 04/14/2018 and did well. She had a low-grade fever on that morning but the chest x-ray was consistent with atelectasis. There were no infiltrates. The fever resolved after she was up in a chair and using an incentive spirometer. Her pressures were somewhat elevated and she was very emotionally labile and distraught. She was started on atenolol 25 mg daily and this was increased to 50 mg daily on the date of discharge. She has a microcytic anemia and iron studies were done and showed a serum iron of 11, elevated TIBC at 522 and low iron saturation at 2.1%. Serum ferritin was very low at 4. She should be placed on an iron supplement and should have a workup as an outpatient by her primary care physician for etiology of the iron deficiency. He was seen by the crisis counselor who was successful in arranging transfer to [facility] for psychiatric care. This note was generated with [employer] dictation software. It may contain incorrect words, spelling, and punctuation that were not noted in checking the note before signing. Home Medications: Medications to take at Discharge Albuterol IH (ProAir) [Proair Hfa (SP)Vent Pts] 1 - 2 puff INHALATION Q4H PRN PRN 04/13/18 Hydroxyzine HCl 25 mg PO BID 04/13/18 Loratadine [Claritin] 10 mg PO DAILY 04/13/18 Meloxicam [Mobic] 15 mg PO DAILY 04/13/18 Naltrexone HCl/Bupropion HCl [Contrave ER 8-90 mg Tablet] 2 tab PO BID 04/13/18 Tramadol HCl [Ultram] 50 mg PO Q12H 04/13/18 Venlafaxine XR [Effexor Xr] 150 mg PO BID 04/13/18 Primary Care Physician: Care Physician,No Primary [Primary Care Provider] - Medical Necessity - Tobacco Use Smoking Status: Current some day smoker Tobacco Use: Cigarettes Meaningful Use Info Meaningful Use Diagnoses (Choose all that apply): None applicable Code Visit Inpatient E&M: 74674 Disch Hosp
--- NOTE | 2018-04-15 13:09 | DS.PCM_ITS ---
Discharge Date and Diagnosis - Problem List Patient Problems: Active and Suspected Problems Drug overdose (Acute) Alcohol intoxication (Acute) Date of Admission: 04/13/18 Date of Discharge: 04/15/18 - Primary Discharge Diagnosis Active and Suspected Problems Drug overdose (Acute)- benzodiazepine Alcohol intoxication (Acute) Atelectasis Hypokalemia-resolved Hypoglycemia-resolved - Secondary Discharge Diagnosis Iron deficiency anemia ADHD history Obesity Hospital Course and Treatment Imaging Results: Clinical Impression(s) from Imaging Studies Brain CT 04/13/18 21:07 IMPRESSION: No acute intracranial process. Electronically Signed: Lauren Fabian MD at 22:14 EDT Tel , Service support , Chest X-Ray 04/13/18 21:07 IMPRESSION: No acute cardiopulmonary process. Electronically Signed: Lauren Fabian MD at 21:46 EDT Tel , Service support , Chest X-Ray 04/13/18 22:33 IMPRESSION: Endotracheal tube within the expected region of the proximal mainstem bronchus, recommend retracting the endotracheal tube by 4 to 5 cm. Oral gastric tube tip beyond the inferior margin of the image, recommend repeat imaging including more of the mid abdomen. Electronically Signed: Lauren Fabian MD at 23:00 EDT Tel , Service support , Chest X-Ray 04/14/18 07:00 IMPRESSION: Normal x-ray examination of the chest. Electronically Signed: Wiliam Robledo MD at 11:32 EDT Tel [phone], Service support , Consultations 04/14/18 10:48 Consult: Mental Health/Crisis Routine Reason for consult?: crisis to see pt for suicide attempt Date Notified:: 04/14/18 Time notified:: 09:40 Dr. Pramod Wilks-fly finisher Operations: None Procedures: Intubation Summary of Care Provided: The Patient is a 57-year-old female brought to the emergency room at [facility] on 04/13/2018 by squad after her found her sitting on their deck slumped over and not responding appropriately. She has a history of depression and regularly sees a psychologist. She has been on benzodiazepines in the past. She was initially very drowsy in the emergency room but had a gag reflex. She became progressively less responsive and no longer had a gag reflex and was intubated. CBC showed a low hemoglobin at 8.2 with an MCV of 61.8 and an RDW of 19.5. Potassium was low at 3.3 and the serum bicarb was low at 20. BUN was 20 with a creatinine of 1.07. We have no old labs on this patient. Glucose was low at 44 and the lactic acid was elevated at 5.7. Iron studies showed a low serum iron of 11, elevated TIBC at 522 and iron saturation of 2.1. Alkaline phosphatase was mildly increased at 151 and the other LFTs were within normal limits. Lipase was 79. UA had 0-5 WBCs with 10-25 hyaline casts. It was nitrite negative. Acetaminophen and salicylate levels were within normal limits. Drug screen was positive for benzodiazepines and also positive for ethyl alcohol at 152. Brain CT had no acute intracranial processes. Chest x-ray showed no infiltrates, pulmonary vascular congestion or pleural effusions. She was intubated in the emergency room and subsequently transferred to the intensive care unit. Dr. Pramod Wilks, fly finisher, was consulted to participate in management of the ventilator. She was extubated on 04/14/2018 and did well. She had a low-grade fever on that morning but the chest x-ray was consistent with atelectasis. There were no infiltrates. The fever resolved after she was up in a chair and using an incentive spirometer. Her pressures were somewhat elevated and she was very emotionally labile and distraught. She was started on atenolol 25 mg daily and this was increased to 50 mg daily on the date of discharge. She has a microcytic anemia and iron studies were done and showed a serum iron of 11, elevated TIBC at 522 and low iron saturation at 2.1%. Serum ferritin was very low at 4. She should be placed on an iron supplement and should have a workup as an outpatient by her primary care physician for etiology of the iron deficiency. He was seen by the crisis counselor who was successful in arranging transfer to [place] for psychiatric care. This note was generated with [employer] dictation software. It may contain incorrect words, spelling, and punctuation that were not noted in checking the note before signing. Home Medications: Medications to take at Discharge Albuterol IH (ProAir) [Proair Hfa (SP)Vent Pts] 1 - 2 puff INHALATION Q4H PRN PRN 04/13/18 Hydroxyzine HCl 25 mg PO BID 04/13/18 Loratadine [Claritin] 10 mg PO DAILY 04/13/18 Meloxicam [Mobic] 15 mg PO DAILY 04/13/18 Naltrexone HCl/Bupropion HCl [Contrave ER 8-90 mg Tablet] 2 tab PO BID 04/13/18 Tramadol HCl [Ultram] 50 mg PO Q12H 04/13/18 Venlafaxine XR [Effexor Xr] 150 mg PO BID 04/13/18 Primary Care Physician: Care Physician,No Primary [Primary Care Provider] - Medical Necessity - Tobacco Use Smoking Status: Current some day smoker Tobacco Use: Cigarettes Meaningful Use Info Meaningful Use Diagnoses (Choose all that apply): None applicable Code Visit Inpatient E&M: 26353 Disch Hosp
[2018-04-15 13:24] VITALS: BP 171/82; PULSE 78; RESP 16; TEMP 37.1; O2SAT 100
--- NOTE | 2018-04-15 13:45 | NURSING ---
Spoke w/ pt's Eliseo. Gave transport information/ETA as well as unit number at [facility] to call for questions. Verbalizes understanding.
== END 2018-04-15 14:10 | DRG 917 ==
LOC: ED 22:59 → ICU 04-14 00:03
PROVIDERS: Admitting Provider Internal Medicine; Emergency Provider Emergency Medicine; Visit Provider Internal Medicine
DX: T42.4X2A Poisoning by benzodiazepines, intentional self-harm, initial encounter (principal); G92 Toxic encephalopathy; E87.2 Acidosis; J98.11 Atelectasis; Y92.009 Unspecified place in unspecified non-institutional (private) residence as the place of occurrence of the external cause; E87.6 Hypokalemia; D50.9 Iron deficiency anemia, unspecified; F17.210 Nicotine dependence, cigarettes, uncomplicated; E16.2 Hypoglycemia, unspecified; F90.9 Attention-deficit hyperactivity disorder, unspecified type; E66.9 Obesity, unspecified; Z68.36 Body mass index [BMI] 36.0-36.9, adult; I10 Essential (primary) hypertension; T51.0X2A Toxic effect of ethanol, intentional self-harm, initial encounter; F10.129 Alcohol abuse with intoxication, unspecified; Y90.6 Blood alcohol level of 120-199 mg/100 ml; G89.4 Chronic pain syndrome; F32.9 Major depressive disorder, single episode, unspecified
CPT/HCPCS: 31500; 36600; 51702; 70450; 71045; 80048; 80053; 80307; 80320; 80329; 81001; 82009; 82040; 82728; 82803; 82962; 83540; 83550; 83605; 83690; 83735; 84100; 84484; 85025; 85027; 85610; 85730; 87641; 93005; 94002; 94660; 95831; 97802; 99251; 99285; J1756; J7030; A4216; G0463; G0480; J3490

== ENCOUNTER → 2018-08-03 10:20 | Outpatient (CLI) | payer OTHER, SELFPAY ==
--- NOTE | 2018-08-03 10:52 | EKG12_ITS ---
Test Reason : MED CHECK Blood Pressure : / mmHG Vent. Rate : 073 BPM Atrial Rate : 073 BPM P-R Int : 168 ms QRS Dur : 082 ms QT Int : 554 ms P-R-T Axes : 020 028 097 degrees QTc Int : 610 ms Normal sinus rhythm Nonspecific T wave abnormality Prolonged QT Abnormal ECG Confirmed by TIM REAVES, LIZBETH ([id number]), general expeditor ILIA MENDIOLA ([id number]) on 08/04/2018 2:07:23 PM Referred By: ELLIS MENDIOLA Confirmed By:LIZBETH DUMONT MD
[2018-08-03 11:43] LABS: Absolute Lymphocyte Count 1.86 X10^3/ul (0.83-4.51); Absolute Neutrophil Count 3.5 X10^3/uL (2.0-7.7); Basophil# 0.04 X10^3/uL; Basophil% 0.7 % (0-1); Eosinophil# 0.27 X10^3/uL; Eosinophils% 4.4 % (0-5); Hematocrit 35.5 % (37-47); Hemoglobin 10.8 g/dl (12.0-15.0); Lymphocyte # 1.86 X10^3/ul (4.0); Lymphocyte % 30.3 % (19-41); Mean Corp Hgb Conc 30.4 g/gl (32-36); Mean Corpuscular Hgb 21.2 pg (27.0-32.0); Mean Corpuscular Volume 69.7 fL (81-99); Mean Platelet Vol. 10.8 fl (6.2-12.0); Monocyte# 0.51 X10^3/uL; Monocyte% 8.3 % (0-10); Neutrophil # 3.45 X10^3/uL (2.7-7.7); Neutrophil % 56.1 % (47-70); Platelet Count 320 K/mm3 (150-450); RBC Distribution Width CV 17.9 % (11.6-14.6); RBC Distribution Width SD 44.8 fl (35.1-43.9); Red Blood Count 5.09 M/mm3 (4.2-5.4); White Blood Count 6.1 K/mm3 (4.4-11.0)
[2018-08-03 11:44] LABS: Differential Indicated SCAN CRITERIA MET; POSITIVE COUNT NO; POSITIVE DIFFERENTIAL NO; POSITIVE MORPHOLOGY YES
[2018-08-03 11:49] LABS: Amphetamine Urine VISTA NEGATIVE (<1000 ng/mL); Barbiturate Urine VISTA NEGATIVE (< 200 ng/mL); Benzodiazepine Urine VISTA NEGATIVE (< 200 ng/mL); Cocaine Urine VISTA NEGATIVE (< 300 ng/mL); Ecstacy Urine VISTA POSITIVE (< 500 ng/mL); Methadone Urine VISTA NEGATIVE (< 300 ng/mL); PCP Urine VISTA NEGATIVE (< 25 ng/mL); THC Urine VISTA NEGATIVE (< 50 ng/mL); Vista UDS pH Range 5
[2018-08-03 12:28] LABS: ALB/GLOB Ratio 0.8 RATIO (0.9-2.4); AST(SGOT) 17 U/L (15-37); Alanine Aminotransfer ALT/SGPT 19 U/L (13-56); Albumin, Serum 3.5 g/dL (3.2-5.0); Alkaline Phosphatase 128 U/L (45-117); Anion Gap 9 (5-15); BUN 13 mg/dL (7-18); BUN/Creat Ratio 14.5 RATIO (10-20); Calcium,Total 8.5 mg/dL (8.5-10.1); Chloride 105 mmol/L (98-107); EST Glomerular Filtration Rate 68 mL/min (>60); Est Glom Filt Rate - Afr Amer 82 mL/min (>60); Globulin 4.4 g/dL (2.2-4.2); Glucose 98 mg/dL (74-106); Potassium 4.2 mmol/L (3.5-5.1); Protein, Total 7.9 g/dL (6.4-8.2); Sodium Level 140 mmol/L (136-145); Thyroid Stim Hormone (TSH) 1.11 uIU/mL (0.358-3.74)
== END ==
DX: I49.9 Cardiac arrhythmia, unspecified (principal); F31.9 Bipolar disorder, unspecified; Z79.899 Other long term (current) drug therapy
CPT/HCPCS: 36415; 80053; 80307; 84443; 85025; 93005

== ENCOUNTER → 2018-09-06 16:04 | Outpatient (CLI) | payer OTHER, SELFPAY ==
[2018-09-06 17:05] LABS: Absolute Lymphocyte Count 2.33 X10^3/ul (0.83-4.51); Absolute Neutrophil Count 5.2 X10^3/uL (2.0-7.7); Basophil# 0.03 X10^3/uL; Basophil% 0.4 % (0-1); Eosinophil# 0.27 X10^3/uL; Eosinophils% 3.2 % (0-5); Hematocrit 34.7 % (37-47); Hemoglobin 10.3 g/dl (12.0-15.0); Lymphocyte # 2.33 X10^3/ul (4.0); Lymphocyte % 27.5 % (19-41); Mean Corp Hgb Conc 29.7 g/gl (32-36); Mean Corpuscular Hgb 20.6 pg (27.0-32.0); Mean Corpuscular Volume 69.3 fL (81-99); Mean Platelet Vol. 9.6 fl (6.2-12.0); Monocyte# 0.68 X10^3/uL; Neutrophil # 5.17 X10^3/uL (2.7-7.7); Neutrophil % 60.9 % (47-70); Platelet Count 320 K/mm3 (150-450); RBC Distribution Width CV 17.3 % (11.6-14.6); RBC Distribution Width SD 43.7 fl (35.1-43.9); Red Blood Count 5.01 M/mm3 (4.2-5.4); White Blood Count 8.5 K/mm3 (4.4-11.0)
[2018-09-06 17:28] LABS: Anion Gap 10 (5-15); BUN 18 mg/dL (7-18); BUN/Creat Ratio 20.1 RATIO (10-20); Calcium,Total 8.4 mg/dL (8.5-10.1); Chloride 103 mmol/L (98-107); EST Glomerular Filtration Rate 68 mL/min (>60); Est Glom Filt Rate - Afr Amer 83 mL/min (>60); Glucose 100 mg/dL (74-106); Potassium 3.8 mmol/L (3.5-5.1); Sodium Level 138 mmol/L (136-145)
[2018-09-06 17:55] LABS: Differential Indicated SCAN CRITERIA MET; POSITIVE COUNT NO; POSITIVE DIFFERENTIAL NO; POSITIVE MORPHOLOGY YES
[2018-09-06 17:56] LABS: Anisocytosis 1+; Hypochromasia 1+; Platelet Estimate A (ADEQ); Target Cells RARE
== END ==
PROVIDERS: Referring Provider Physician Assistant Surgical; Visit Provider Physician Assistant Surgical
DX: Z01.818 Encounter for other preprocedural examination (principal)
CPT/HCPCS: 36415; 80048; 85025

== ENCOUNTER → 2018-09-08 17:42 | Outpatient (CLI) | payer OTHER, SELFPAY | PROVIDERS: Family Provider Family Medicine Geriatric Medicine; PCP Family Medicine Geriatric Medicine; Referring Provider Family Medicine Geriatric Medicine; Visit Provider Family Medicine Geriatric Medicine | DX: N39.0 Urinary tract infection, site not specified (principal); Z13.89 Encounter for screening for other disorder | CPT/HCPCS: 87086; 87088; 87186 ==

== ENCOUNTER → 2018-09-08 18:03 | Outpatient (CLI) | payer OTHER, SELFPAY | PROVIDERS: Family Provider Family Medicine Geriatric Medicine; PCP Family Medicine Geriatric Medicine; Visit Provider Family Medicine Geriatric Medicine | DX: Z00.00 Encounter for general adult medical examination without abnormal findings (principal) ==

== ENCOUNTER → 2018-09-13 06:37 | Outpatient (CLI) | payer OTHER, SELFPAY ==
--- NOTE | 2018-09-13 09:25 | STRESSREP_ITS ---
Stress Test Report Date: 09/13/2018 Procedure: Pharmacologic stress nuclear imaging study Indications: Abnormal electrocardiogram; preoperative cardiovascular evaluation Consent: Per the patient Procedure: The patient underwent pharmacologic (Regadenoson) evaluation with a peak heart rate of 105 beats per minute (65 predicted maximal heart rate) and a peak blood pressure of 138/80 mmHg. The baseline ECG demonstrated sinus rhythm; nonspecific ST/T wave abnormality. The peak pharmacologic ECG demonstrated no obvious ECG changes. [There were no cardiac dysrhythmias pretest, during pharmacologic infusion, or recovery]. [There was no complaint of chest discomfort during pharmacologic infusion or recovery]. The examination was discontinued secondary to completion of protocol. Impression: 1. Pharmacologic (Regadenoson) evaluation 2. Peak pharmacologic ECG with no obvious ECG changes. 3. [There were no cardiac dysrhythmias pretest, during pharmacologic infusion, or recovery]. 4. Nuclear images pending Myocardial perfusion imaging study: Technique: The patient was injected with 11.7 millicuries of technetium 99m Cardiolite and subsequently rest SPECT Cardiolite nuclear imaging was obtained in the horizontal long, vertical long, and short axis views. The patient underwent pharmacologic (Regadenoson) evaluation with a peak heart rate of 105 beats per minute (65 % percent predicted maximal heart rate) and a peak blood pressure of 138/80 mmHg. The patient was injected with 33.9 millicuries of technetium 99m Cardiolite and subsequently stress SPECT Cardiolite nuclear imaging was obtained in the horizontal long, vertical long, and short axis views. A gated Cardiolite study at peak stress was obtained. Interpretation: Rest and stress SPECT Cardiolite nuclear imaging status post realignment, normalization, and attenuation correction demonstrate extracardiac/hepatic gastrointestinal tracer uptake near the inferior segments otherwise there appears to be relative uniform tracer uptake and myocardial perfusion appearing within normal limits. [There is end systolic thickening and brightening]. [The gated Cardiolite study demonstrates myocardial thickening and inward wall motion]. The reported LVEF is 61 %. Impression: 1. [Rest and stress SPECT Cardiolite nuclear imaging demonstrate relative uniform tracer uptake and myocardial perfusion appearing within normal limits]. 2. The gated Cardiolite study reports an LVEF of 61 %. This note was generated with [email or web address] software. It may contain incorrect words, spelling, and punctuation that were not noted in checking the note before signing.
== END ==
PROVIDERS: Family Provider Family Medicine Geriatric Medicine; PCP Family Medicine Geriatric Medicine; Referring Provider Family Medicine Geriatric Medicine; Visit Provider Family Medicine Geriatric Medicine
DX: R94.31 Abnormal electrocardiogram [ECG] [EKG] (principal)
CPT/HCPCS: 78452; 93017; A9500; A4216; J2785

== ENCOUNTER → 2018-10-25 12:29 | Outpatient (CLI) | payer OTHER, SELFPAY ==
--- NOTE | 2018-10-25 12:32 | RAD_ITS ---
STUDY: SWALLOWING STUDY REASON FOR EXAM: Female, 58 years old. Dysphagia. TECHNIQUE: The examination was performed with Speech Pathology in attendance. Under fluoroscopic observation, the patient ingested thin barium, thick barium, barium pudding, and barium coated cracker. FLUOROSCOPY TIME: 1:50 minutes/seconds. 1742 spot views were obtained. RADIOLOGIST INVOLVEMENT: Radiologist was present and providing direct supervision. COMPARISON: None. FINDINGS: The following was observed during swallowing of the various mixtures of barium: Thin Barium: Transient penetration with ingestion of thin liquids. Thick Barium: There was no evidence of aspiration or laryngeal penetration. Barium Pudding: There was no evidence of aspiration or laryngeal penetration. Barium Coated Cracker: There was no evidence of aspiration or laryngeal penetration. RAD/Swallowing Function w/Video IMPRESSION: Transient penetration with ingestion of thin liquids. The swallow study findings were discussed with the patient by the speech pathologist at the conclusion of the examination. Please see speech pathology report for more information and recommendations. Electronically Signed: Wiliam Robledo MD at 14:14 EST Tel [phone], Service support ,
--- NOTE | 2018-10-25 12:45 | SP.MBSS_ITS ---
PRIMARY / SECONDARY DIAGNOSIS: dysphagia (R13.10) REFERRING PHYSICIAN: Dr. Yogi Bello MD CURRENT DIET: regular textures, thin liquids DENTITION: WFL MENTAL STATUS: WNL RESPIRATORY STATUS: O2 via room air PREVIOUS MODIFIED BARIUM SWALLOW STUDY: REASON FOR REFERRAL: Patient is a 58 year old female referred for a modified barium swallow (MBS) study to objectively assess the Patients oropharyngeal swallow function under fluoroscopy secondary to reported intermittent dysphagia with ?dry? textures. Patient reports symptoms occurring intermittently, with occasional difficulty initiating the swallow, though reports symptoms are somewhat transient in nature. The Patient denies any further complications associated with deglutition. MEDICAL HISTORY: Benzodiazepine overdose with toxic encephalopathy, attention deficit hyperactivity disorder, depression, shellfish allergy. STUDY FINDINGS: Patient participated in a Modified Barium Swallow (MBS) study on 10/25/2018. Dr. Robledo was the radiologist present for this evaluation. This study was recorded in the lateral view and images were sent to PACs for storage. The following consistencies were presented to this patient for analysis of oropharyngeal swallow function: thin liquids, pudding, and a regular textured, Francheska Doone cookie. Results of the MBS are as follows: PENETRATION / ASPIRATION SCALE (CANALES): 1 = does not enter airway 2 = enters airway/above vocal folds/ejected 3 = enters airway/above vocal folds/not ejected 4 = enters airway/contacts vocal folds/ejected 5 = enters airway/contacts vocal folds/not ejected 6 = enters airway/below vocal folds/ejected 7 = enters airway/below vocal folds/not ejected despite effort 8 = enters airway/below vocal folds/no effort PENETRATION / ASPIRATION SCALE (SCORE): Thin liquid - 5 mL tsp.: 2 Thin liquids via cup (single sip): 3 Thin liquids via cup (single sip): 2 Thin liquids via cup (single sip): 2 Thin liquids via straw (single sip): 2 Thin liquids via straw (sequential swallows): 1 Thin liquids via straw (sequential swallows): 2 Pudding via spoon: 1 Regular textured cookie: 1 Thin liquids via straw (single sip): 2 Thin liquids via straw (chin tuck): 1 Thin liquids via straw (chin tuck): 1 Thin liquids via straw (chin tuck): 1 IMPRESSION: DIAGNOSIS: mild pharyngeal dysphagia (R13.13) ORAL PHASE CHARACTERIZED BY: LABIAL SEAL: no labial escape TONGUE CONTROL DURING BOLUS MANIPULATION: cohesive bolus between tongue to palatal seal BOLUS PREPARATION / MASTICATION: timely and efficient chewing and mashing BOLUS TRANSPORT / LINGUAL MOTION: brisk tongue motion ORAL RESIDUE: trace residue lining oral structures PHARYNGEAL PHASE CHARACTERIZED BY: INITIATION OF PHARYNGEAL SWALLOW: bolus head in valleculae at first hyoid excursion SOFT PALATE ELEVATION: no bolus between soft palate and pharyngeal wall LARYNGEAL ELEVATION: complete superior movement of thyroid cartilage with complete approximation of arytenoids cartilage to epiglottic petiole ANTERIOR HYOID EXCURSION: partial anterior movement EPIGLOTTIC MOVEMENT: complete epiglottic inversion LARYNGEAL VESTIBULE CLOSURE AT HEIGHT OF SWALLOW: incomplete laryngeal vestibule closure with narrow column of air/contrast in laryngeal vestibule PHARYNGEAL STRIPPING WAVE: pharyngeal stripping wave present / diminished PHARYNGOESOPHAGEAL SEGMENT OPENING: complete distension and complete duration with no obstruction of flow TONGUE BASE RETRACTION: narrow column of contrast between tongue base and posterior pharyngeal wall PHARYNGEAL RESIDUE: collection of residue within or on pharyngeal structures ESOPHAGEAL PHASE CHARACTERIZED BY: ESOPHAGEAL BOLUS CLEARANCE IN THE UPRIGHT POSITION: could not view EFFECTS OF TREATMENT STRATEGIES ATTEMPTED: Chin tuck posture = effective Liquid chaser = effective Reduced bolus size = moderately effective DIET TEXTURE RECOMMENDATIONS: Will recommend a regular textured, thin liquid diet. COMPENSATORY STRATEGIES RECOMMENDED: Chin tuck, reduced bolus volume, reduced rate of intake, intermittent liquid chaser, straws ok, seated upright at 90 degrees during PO intake, remain upright for 30-60 minutes post meal (GERD precaution) INTERPRETATION OF RESULTS: Patient presents with mild pharyngeal dysphagia (R13.13), with transient penetration of thin liquids ameliorated with chin tuck execution. Rather consistent laryngeal vestibule pressure generated to expel penetrated material with exception of 1 trial. Unremarkable oral preparatory and transitional phases. Mild cricopharyngeal bar located at the C-5 level, no effect on pharyngoesophageal motility. No aspiration appreciated throughout trials, unable to definitively rule out silent aspiration (though not necessarily suspected). RECOMMENDATIONS: The Patient was able to comprehend and express recommended intake precautions detailed above with sufficient detail to suggest high likelihood of compliance. Provided brief overview of signs and symptoms of aspiration, with recommendations for the Patient to further discuss symptoms with PCP. No further skilled speech-language services warranted at this time targeting dysphagia. ADDITIONAL COMMENTS/RECOMMENDATIONS: Results and recommendations were discussed with the Patient immediately following MBS completion, with the Patient verbalizing understanding and agreement with all recommendations and education provided. IMAGE COUNT: [id number] G-CODES: SWALLOWING G8996 Current Status: CI SWALLOWING G8997 Goal Status: CI SWALLOWING G8998 Discharge Status: CI Cameron Regalado M.A., CCC-FINISHING MACHINE OPERATOR [employer] [facility] Speech-Language Pathology Department [email or web address]
== END ==
PROVIDERS: Family Provider Family Medicine Geriatric Medicine; PCP Family Medicine Geriatric Medicine; Referring Provider Family Medicine Geriatric Medicine; Visit Provider Family Medicine Geriatric Medicine
DX: R13.10 Dysphagia, unspecified (principal)
CPT/HCPCS: 74230; 92611

== ENCOUNTER → 2019-10-25 16:20 | Outpatient (CLI) | payer OTHER, SELFPAY ==
[2019-10-25 17:24] LABS: Absolute Neutrophil Count 3.8 X10^3/uL (2.0-7.7); Basophil# 0.07 X10^3/uL; Basophil% 0.9 % (0-1); Eosinophil# 0.53 X10^3/uL; Eosinophils% 6.7 % (0-5); Hematocrit 40.3 % (37-47); Hemoglobin 12.5 g/dL (12.0-15.0); Lymphocyte % 36.7 % (19-41); Mean Corpuscular Hgb 25.1 pg (27.0-32.0); Mean Corpuscular Volume 80.9 fL (81-99); Mean Platelet Vol. 10.8 fl (6.2-12.0); Monocyte# 0.61 X10^3/uL; Monocyte% 7.7 % (0-10); NRBC Flagged by Analyzer 0 % (0-5); Neutrophil # 3.78 X10^3/uL (2.7-7.7); Neutrophil % 47.7 % (47-70); Platelet Count 295 K/mm3 (150-450); RBC Distribution Width CV 15.5 % (11.6-14.6); RBC Distribution Width SD 45.6 fl (35.1-43.9); Red Blood Count 4.98 M/mm3 (4.2-5.4); White Blood Count 7.9 K/mm3 (4.4-11.0)
[2019-10-25 17:39] LABS: ALB/GLOB Ratio 0.9 RATIO (0.9-2.4); AST(SGOT) 21 U/L (15-37); Alanine Aminotransfer ALT/SGPT 25 U/L (13-56); Albumin, Serum 3.8 g/dL (3.2-5.0); Alkaline Phosphatase 119 U/L (45-117); Anion Gap 9 (5-15); BUN 17 mg/dL (7-18); BUN/Creat Ratio 16.8 RATIO (10-20); Calcium,Total 8.6 mg/dL (8.5-10.1); Chloride 105 mmol/L (98-107); Creatinine, Serum 1.01 mg/dL (0.55-1.02); EST Glomerular Filtration Rate 59 mL/min (>60); Est Glom Filt Rate - Afr Amer 72 mL/min (>60); Globulin 4.4 g/dL (2.2-4.2); Glucose 81 mg/dL (74-106); Potassium 4.4 mmol/L (3.5-5.1); Protein, Total 8.2 g/dL (6.4-8.2); Sodium Level 139 mmol/L (136-145)
== END ==
PROVIDERS: Family Provider Family Medicine Geriatric Medicine; PCP Family Medicine Geriatric Medicine; Visit Provider Family Medicine Geriatric Medicine
DX: R53.83 Other fatigue (principal)
CPT/HCPCS: 36415; 80053; 84443; 85025

== ENCOUNTER → 2020-07-04 14:23 | Outpatient (CLI) | payer OTHER, SELFPAY ==
[2020-07-04 15:59] LABS: Absolute Lymphocyte Count 2.07 X10^3/uL (0.83-4.51); Absolute Neutrophil Count 4.9 X10^3/uL (2.0-7.7); Basophil# 0.06 X10^3/uL; Basophil% 0.7 % (0-1); Eosinophil# 0.44 X10^3/uL; Eosinophils% 5.4 % (0-5); Hematocrit 35.1 % (37-47); Hemoglobin 10.5 g/dL (12.0-15.0); Lymphocyte # 2.07 X10^3/ul (4.0); Lymphocyte % 25.6 % (19-41); Mean Corp Hgb Conc 29.9 g/dL (32-36); Mean Corpuscular Hgb 24.4 pg (27.0-32.0); Mean Corpuscular Volume 81.4 fL (81-99); Mean Platelet Vol. 10.7 fl (6.2-12.0); Monocyte# 0.64 X10^3/uL; Monocyte% 7.9 % (0-10); NRBC Flagged by Analyzer 0 % (0-5); Neutrophil # 4.87 X10^3/uL (2.7-7.7); Neutrophil % 60.3 % (47-70); Platelet Count 346 K/mm3 (150-450); RBC Distribution Width CV 17.1 % (11.6-14.6); RBC Distribution Width SD 51.3 fl (35.1-43.9); Red Blood Count 4.31 M/mm3 (4.2-5.4); White Blood Count 8.1 K/mm3 (4.4-11.0)
[2020-07-04 16:19] LABS: ALB/GLOB Ratio 0.9 RATIO (0.9-2.4); AST(SGOT) 19 U/L (15-37); Alanine Aminotransfer ALT/SGPT 21 U/L (13-56); Albumin, Serum 3.7 g/dL (3.2-5.0); Alkaline Phosphatase 123 U/L (45-117); Anion Gap 5 (5-15); BUN 22 mg/dL (7-18); BUN/Creat Ratio 23.8 RATIO (10-20); Calcium,Total 8.6 mg/dL (8.5-10.1); Chloride 106 mmol/L (98-107); Creatinine, Serum 0.92 mg/dL (0.55-1.02); EST Glomerular Filtration Rate 65 mL/min (>60); Est Glom Filt Rate - Afr Amer 79 mL/min (>60); Globulin 4.2 g/dL (2.2-4.2); Glucose 72 mg/dL (74-106); Potassium 4.4 mmol/L (3.5-5.1); Protein, Total 7.9 g/dL (6.4-8.2); Sodium Level 140 mmol/L (136-145)
== END ==
PROVIDERS: PCP Family Medicine Geriatric Medicine; Visit Provider Family Medicine Geriatric Medicine
DX: R53.83 Other fatigue (principal)
CPT/HCPCS: 36415; 80053; 84443; 85025

== ENCOUNTER → 2020-07-11 14:35 | Outpatient (CLI) | payer OTHER, SELFPAY ==
[2020-07-11 15:06] LABS: Absolute Lymphocyte Count 2.53 X10^3/uL (0.83-4.51); Absolute Neutrophil Count 5.9 X10^3/uL (2.0-7.7); Basophil# 0.04 X10^3/uL; Basophil% 0.4 % (0-1); Eosinophil# 0.34 X10^3/uL; Eosinophils% 3.6 % (0-5); Hematocrit 40.4 % (37-47); Hemoglobin 12.4 g/dL (12.0-15.0); Lymphocyte # 2.53 X10^3/ul (4.0); Lymphocyte % 26.6 % (19-41); Mean Corp Hgb Conc 30.7 g/dL (32-36); Mean Corpuscular Hgb 24.6 pg (27.0-32.0); Mean Platelet Vol. 10.3 fl (6.2-12.0); Monocyte# 0.66 X10^3/uL; Monocyte% 6.9 % (0-10); NRBC Flagged by Analyzer 0 % (0-5); Neutrophil # 5.89 X10^3/uL (2.7-7.7); Neutrophil % 62.1 % (47-70); Platelet Count 369 K/mm3 (150-450); RBC Distribution Width CV 16.8 % (11.6-14.6); RBC Distribution Width SD 48.6 fl (35.1-43.9); RET-HE 25.8 pg (30-35); Red Blood Count 5.05 M/mm3 (4.2-5.4); Reticulocyte Count 0.93 % (0.5-1.5); White Blood Count 9.5 K/mm3 (4.4-11.0)
[2020-07-11 15:33] LABS: Vitamin B12 481 pg/mL (211-911)
[2020-07-11 15:41] LABS: Ferritin 6 ng/mL (8-252); Iron 39 ug/dL (50-170); Iron Binding Capacity,Total 518 ug/dL (250-450); PERCENT IRON SATURATION 7.5 % (15.0-55.0)
== END ==
PROVIDERS: PCP Family Medicine Geriatric Medicine; Referring Provider Family Medicine Geriatric Medicine; Visit Provider Family Medicine Geriatric Medicine
DX: D64.9 Anemia, unspecified (principal)
CPT/HCPCS: 36415; 82607; 82728; 82746; 83540; 83550; 85025; 85045

== ENCOUNTER → 2020-10-04 | Outpatient (CLI) | payer OTHER, SELFPAY ==
--- NOTE | 2020-10-04 15:45 | TISS_PTH ---
PATIENT: MISTY BEAR LOC: [facility] U#:[id number] AGE/SX: 60/F ROOM: RE10/04/[address]: Dr. Lewis Bello MD : 1960 BED: DIS: 10/04/2020 SPEC #: [id number] RECD: 10/04/20 16:58 STATUS: JAYMIE ELLA #: [id number] JO ANN: 10/04/20 15:[address]: Lewis Bello Chi DEPT: SURGICAL PATHOLOGY RECD BY: Nicole Lieberman Tissues: Skin of back, NOS Procedures: Surgery Specimen Level IV HEADER OPERATION: Biopsy PRE-OP DIAGNOSIS: L98.9 TISSUE SUBMITTED: Back MICROSCOPIC DIAGNOSIS Skin lesion of back, shave biopsy: Basal cell carcinoma: - ulcerated and inflamed: -12 mm in greatest dimension - extending to deep margin of excision. AM:kathy 10/08/20 MICROSCOPIC DESCRIPTION Slides are reviewed. GROSS DESCRIPTION Received in fixative is one container labeled with the patient's name and designated back. The specimen consists of a light quiroz shave biopsy of skin measuring 1.5 x 0.7 x <0.1 cm. The specimen is inked, sectioned and totally submitted in one cassette. / AM:kathy 10/05/20 TC:0 CPT: 15409
== END | disposition home or self-care (01) ==
LOC: LABSPEC 16:19
PROVIDERS: PCP Family Medicine Geriatric Medicine; Visit Provider Family Medicine Geriatric Medicine
DX: L98.9 Disorder of the skin and subcutaneous tissue, unspecified (principal)
CPT/HCPCS: 88305

== ENCOUNTER 2021-01-24 16:53 | Outpatient (RCR) | payer OTHER, SELFPAY ==
[2021-01-24] MEDS: COVID-19 VACC, MRNA(PFIZER)/PF 30 MCG/0.3 ML SYRINGE IM (16:11)
[2021-02-14] MEDS: COVID-19 VACC, MRNA(PFIZER)/PF 30 MCG/0.3 ML SYRINGE IM (15:52)
== END 2021-04-23 23:59 ==
LOC: IMMUN 16:53
PROVIDERS: PCP Family Medicine Geriatric Medicine; Visit Provider Family Medicine
DX: Z23 Encounter for immunization (principal)
CPT/HCPCS: 0001A; 0002A; 91300

== ENCOUNTER → 2021-10-22 10:42 | Outpatient (CLI) | payer OTHER, SELFPAY ==
[2021-10-22 16:47] LABS: Absolute Lymphocyte Count 1.84 X10^3/uL (0.83-4.51); Absolute Neutrophil Count 3.3 X10^3/uL (2.0-7.7); Basophil# 0.05 X10^3/uL; Basophil% 0.8 % (0-1); Eosinophil# 0.38 X10^3/uL; Eosinophils% 6.3 % (0-5); Hematocrit 30.9 % (37-47); Hemoglobin 9.3 g/dL (12.0-15.0); Lymphocyte # 1.84 X10^3/ul (0.83-4.51); Lymphocyte % 30.3 % (19-41); Mean Corp Hgb Conc 30.1 g/dL (32-36); Mean Corpuscular Hgb 21.3 pg (27.0-32.0); Mean Corpuscular Volume 70.7 fL (81-99); Mean Platelet Vol. 11.2 fl (6.2-12.0); Monocyte# 0.47 X10^3/uL; Monocyte% 7.7 % (0-10); NRBC Flagged by Analyzer 0 % (0-5); Neutrophil # 3.33 X10^3/uL (2.7-7.7); Neutrophil % 54.7 % (47-70); Platelet Count 336 K/mm3 (150-450); RBC Distribution Width CV 17.5 % (11.6-14.6); Red Blood Count 4.37 M/mm3 (4.2-5.4); White Blood Count 6.1 K/mm3 (4.4-11.0)
[2021-10-22 17:11] LABS: ALB/GLOB Ratio 0.9 RATIO (0.9-2.4); AST(SGOT) 21 U/L (15-37); Alanine Aminotransfer ALT/SGPT 21 U/L (13-56); Albumin, Serum 3.7 g/dL (3.2-5.0); Alkaline Phosphatase 115 U/L (45-117); Anion Gap 8 (5-15); BUN 20 mg/dL (7-18); BUN/Creat Ratio 23.6 RATIO (10-20); Calcium,Total 8.6 mg/dL (8.5-10.1); Chloride 105 mmol/L (98-107); Creatinine, Serum 0.85 mg/dL (0.55-1.02); EST Glomerular Filtration Rate 72 mL/min (>60); Est Glom Filt Rate - Afr Amer 87 mL/min (>60); Globulin 4.1 g/dL (2.2-4.2); Glucose 93 mg/dL (74-106); Potassium 4.5 mmol/L (3.5-5.1); Protein, Total 7.8 g/dL (6.4-8.2); Sodium Level 138 mmol/L (136-145); Thyroid Stim Hormone (TSH) 1.12 uIU/mL (0.358-3.74)
== END ==
LOC: LAB.FUTURE 10:43 → POLAB3 15:03
PROVIDERS: PCP Family Medicine Geriatric Medicine; Visit Provider Family Medicine Geriatric Medicine
DX: I10 Essential (primary) hypertension (principal)
CPT/HCPCS: 36415; 80053; 84443; 85025

== ENCOUNTER 2023-06-27 17:44 | Emergency (ER) | payer OTHER, SELFPAY ==
[2023-06-27 17:46] VITALS: TEMP 36.2; BMI 24.7
[2023-06-27 17:49] VITALS: BP 148/107; PULSE 77; RESP 18; O2SAT 97
--- NOTE | 2023-06-27 18:13 | EDS_ITS ---
HPI History of Present Illness Chief Complaint: ETOH Intox Informant: patient Onset/Context/Timing Onset: Today Context: Gradual Onset Timing: Continuous Quality: Depressed Location: Generalized Worsened by: Nothing Relieved by: Nothing Narrative Narrative: Patient presents with depression and alcohol intoxication that began today. Patient states she drinks daily. Patient states she drinks large amount of alcohol daily. Patient is unsure how much she had to drink today. Patient states she feels depressed. Patient denies any suicidal ideations on my examination. Upon arrival however, patient was overheard saying she wanted to . Patient denies any fevers or chills. Patient denies any nausea or vomiting. [facility] Medical History Anxiety Depression ETOH abuse Home Medications albuterol sulfate 90 mcg/actuation aerosol inhaler (ProAir HFA) 1 - 2 puff inhalation Q4H PRN PRN COUGH/SOB 04/13/18 [History Last Taken Unknown] venlafaxine 150 mg capsule,extended release 24 hr 150 mg PO BID 04/13/18 [History Last Taken Unknown] dextroamphetamine-amphetamine 20 mg tablet 20 mg PO DAILY 06/27/23 [History Last Taken Unknown] Allergy/AdvReac Type Severity Reaction Status Date / Time shellfish derived Allergy Shortness Verified 06/27/23 17:46 of breath Surgical History no surgical history no surgical history Social History Smoking Status: Current every day smoker tobacco type: e-cigarettes ROS ROS ED Constitutional Constitutional ED: Denies chills or fever(s) Eyes Eyes: Denies blurry vision or change in vision ENT ENT ED: Denies rhinorrhea or sore throat Cardiovascular Cardiovascular: Denies chest pain or palpitations Respiratory/Chest Respiratory/Chest: Denies cough or dyspnea Gastrointestinal Gastrointestinal: Denies nausea or vomiting Genitourinary Genitourinary ED: Denies dysuria or hematuria Musculoskeletal Musculoskeletal: Denies back pain or neck pain Integumentary Denies abscess or rash Neurologic Neurologic: Denies headache(s) or weakness Psychiatric Psychiatric: Reports depression Allergic/Immunologic Allergic/Immunologic ED: Denies mouth swelling or urticaria EXAM Physical Exam Const Vital Signs: 06/27/23 17:46 06/27/23 17:49 06/27/23 22:24 Temperature 97.2 F L 97.3 F L Temperature Source Temporal Temporal Pulse Rate 77 72 Respiratory Rate 18 16 Blood Pressure 148/107 H 123/81 H Blood Pressure Mean 120 95 Pulse Ox 97 98 Oxygen Delivery Method Room Air Room Air Positive well nourished and well developed General Appearance ED: well developed and NAD HEENT normocephalic and atraumatic Neck supple and no JVD Resp normal respiratory effort and clear to auscultation bilaterally Cardio no murmurs Rate: regular rate Rhythm: regular rhythm GI non-tender and non-distended Auscultation: normoactive bowel sounds Palpation: soft Extremity normal to inspection General Extremety ED: Negative for edema or tenderness General Extremity: Negative for edema Neuro oriented x3, CN's II-XII intact bilaterally and no sensory deficits noted Sensorium / Orientation: alert Motor Exam: strength 5/5 throughout Psych Activity / Motor Behavior: avoids eye contact Speech: minimal and soft Mood & Affect: depressed, tearful and flat affect Skin Rashes: no rashes MDM MDM MDM Narrative Medical decision making narrative: Differential diagnosis includes alcohol intoxication, depression, suicidal ideation, substance abuse, and electrolyte abnormality. Basic screening labs will be obtained. CBC will be obtained to assess for leukocytosis and anemia. Basic metabolic profile will be obtained to assess for electrolyte abnormality and renal function. Serum alcohol level will be obtained to assess for alcohol intoxication. Urinalysis will be obtained to assess for urinary tract infection or hematuria. Urine drug screen will be obtained to assess for substance abuse. Lab Data Attestation: I reviewed the patient's lab results. Lab results narrative: CBC was reviewed. There is a stable anemia with a hemoglobin of 9.9 and hematocrit 33.9. Basic metabolic profile was reviewed and was essentially within normal limits. Urinalysis was reviewed. There is no evidence of urinary tract infection or hematuria. Urine tox screen was reviewed and was positive for amphetamine, benzodiazepines, and cannabinoids. Serum alcohol level was reviewed and was elevated at 289. Labs: Laboratory Results - last 24 hr 06/27/23 06/27/23 18:30 22:15 WBC 6.2 RBC 4.68 Hgb 9.9 L Hct 33.9 L MCV 72.4 L MCH 21.2 L MCHC 29.2 L RDW Std Deviation 48.9 H RDW Coeff of Nickolas 19.2 H Plt Count 376 MPV 9.6 Immature Gran % (Auto) 0.200 Neut % (Auto) 38.0 L Lymph % (Auto) 47.2 H [place] % (Auto) 6.3 Eos % (Auto) 7.0 H Baso % (Auto) 1.3 H Absolute Neuts (auto) 2.4 Absolute Lymphs (auto) 2.91 Nucleated RBC % 0 Sodium 143 Potassium 3.6 Chloride 113 H Carbon Dioxide 24.0 Anion Gap 6 BUN 21 H Creatinine 0.72 Estim Creat Clear Calc 68.16 Est GFR (MDRD) Af Amer 105 Est GFR (MDRD) Non-Af 87 BUN/Creatinine Ratio 29.3 H Glucose 98 Calcium 8.5 Urine Color Yellow Urine Clarity Clear Urine pH 6.0 Ur Specific [place] 1.025 Urine Protein 30 H Urine Glucose (UA) Normal Urine Ketones 15 H Urine Occult Blood Negative Urine Nitrite Negative Urine Bilirubin Negative Urine Urobilinogen Normal Ur Leukocyte Esterase Negative Urine RBC 0 SEEN Urine WBC 0-5 SEEN Ur Squamous Epith Cells 0 SEEN Urine Bacteria 0 SEEN Urine Mucus 0 SEEN Urine Opiates Screen NEGATIVE Urine Methadone Screen NEGATIVE Ur Barbiturates Screen NEGATIVE Ur Phencyclidine Scrn NEGATIVE Ur Amphetamines Screen POSITIVE H MDMA (Ecstasy) Screen NEGATIVE U Benzodiazepines Scrn POSITIVE H Urine Cocaine Screen NEGATIVE U Cannabinoids Screen POSITIVE H Ur Drug Screen Comment Ethyl Alcohol 289.0 Treatment and Re-Evaluation :: Suicide precautions were maintained. Patient became more cooperative during her emergency department stay. Patient will be observed until she is clinically sober. Patient will be reevaluated at that time by crisis. Care of the patient was turned over to the oncoming physician pending crisis evaluation. Discharge Plan Triage Chief Complaint: ETOH Intox Other Complaint: Suicidal ED Provider: Luisito Brandt Dx/Rx/DC Orders Clinical Impression: Suicidal ideation, Alcohol intoxication Instructions: ED Depression, ED Alcohol Intoxication Prescriptions: No Action venlafaxine 150 MG capsule 150 mg PO BID albuterol sulfate [ProAir HFA] 1 PUFF inhaler 1 - 2 puff inhalation Q4H PRN PRN (Reason: COUGH/SOB) dextroamphetamine-amphetamine 20 mg tablet 20 mg PO DAILY Patient Comments: TAKE 1 TABLET BY MOUTH THREE TIMES A DAY DIRECTED FOR 30 DAYS Primary Care Provider: Lewis Bello Chi Referrals: Lewis Bello Chi, MD [Primary Care Provider] -
[2023-06-27 18:41] LABS: Absolute Lymphocyte Count 2.91 X10^3/uL (0.83-4.51); Absolute Neutrophil Count 2.4 X10^3/uL (2.0-7.7); Basophil# 0.08 X10^3/uL; Basophil% 1.3 % (0-1); Eosinophil# 0.43 X10^3/uL; Hematocrit 33.9 % (37-47); Hemoglobin 9.9 g/dL (12.0-15.0); Lymphocyte # 2.91 X10^3/ul (0.83-4.51); Lymphocyte % 47.2 % (19-41); Mean Corp Hgb Conc 29.2 g/dL (32-36); Mean Corpuscular Hgb 21.2 pg (27.0-32.0); Mean Corpuscular Volume 72.4 fL (81-99); Mean Platelet Vol. 9.6 fl (6.2-12.0); Monocyte# 0.39 X10^3/uL; Monocyte% 6.3 % (0-10); NRBC Flagged by Analyzer 0 % (0-5); Neutrophil # 2.35 X10^3/uL (2.7-7.7); Platelet Count 376 K/mm3 (150-450); RBC Distribution Width CV 19.2 % (11.6-14.6); RBC Distribution Width SD 48.9 fl (35.1-43.9); Red Blood Count 4.68 M/mm3 (4.2-5.4); White Blood Count 6.2 K/mm3 (4.4-11.0)
[2023-06-27 18:56] LABS: Anion Gap 6 (5-15); BUN 21 mg/dL (7-18); BUN/Creat Ratio 29.3 RATIO (10-20); Calcium,Total 8.5 mg/dL (8.5-10.1); Chloride 113 mmol/L (98-107); Creatinine, Serum 0.72 mg/dL (0.55-1.02); EST Glomerular Filtration Rate 87 mL/min (>60); Est Glom Filt Rate - Afr Amer 105 mL/min (>60); Estimated Creatinine Clearance 68.16 ml/min; Glucose 98 mg/dL (74-106); Potassium 3.6 mmol/L (3.5-5.1); Sodium Level 143 mmol/L (136-145)
--- NOTE | 2023-06-27 20:30 | ED.RN ---
support provided to daughter, Niharika that pt will have sitter throughout the night. ETOH level will be rechecked in am.
[2023-06-27 22:20] LABS: Bacteria 0 SEEN /hpf (None Seen); Mucous, Urine 0 SEEN /hpf (<or=2+); Red Blood Cells-Urine 0 SEEN /hpf (0-5); Squamous Epithelial Cells - UA 0 SEEN /hpf (5-10)
[2023-06-27 22:23] LABS: Color, Urine Yellow (Yellow); Glucose, Dipstick Normal (Normal); Ketone-Dipstick 15 mg/dl (Negative); Leukocyte Esterase-Dipstick Negative /ul (Negative); Nitrite-Dipstick Negative (Negative); Occult Blood-Urine Negative /ul (Negative); Protein-Dipstick 30 mg/dl (Negative); Specific Gravity, Urine 1.025 (1.002-1.030); Urine Bilirubin Dipstick Negative (Negative); Urine Clarity Clear (Clear); Urine Urobilinogen Normal (Normal)
[2023-06-27 22:24] VITALS: BP 123/81; PULSE 72; RESP 16; TEMP 36.3; O2SAT 98
[2023-06-27 22:31] LABS: White Blood Cells 0-5 SEEN /hpf (0-5)
--- NOTE | 2023-06-27 22:37 | ED.RN ---
pt appears calm, cooperative, able to converse appropriately at this time. POC discussed. sitter remains at bedside.
[2023-06-27 22:39] LABS: Amphetamine Urine VISTA POSITIVE (<1000 ng/mL); Barbiturate Urine VISTA NEGATIVE (< 200 ng/mL); Benzodiazepine Urine VISTA POSITIVE (< 200 ng/mL); Cocaine Urine VISTA NEGATIVE (< 300 ng/mL); Ecstacy Urine VISTA NEGATIVE (< 500 ng/mL); Methadone Urine VISTA NEGATIVE (< 300 ng/mL); PCP Urine VISTA NEGATIVE (< 25 ng/mL); THC Urine VISTA POSITIVE (< 50 ng/mL); Vista UDS pH Range 4
[2023-06-27] MEDS: Acetaminophen 325 MG Tablet 650 MG PO (22:49)
[2023-06-27] MEDS: Venlafaxine XR 150 MG Capsule PO (22:49)
[2023-06-28 03:36] VITALS: BP 156/84; PULSE 77; RESP 18; O2SAT 100
[2023-06-28 06:02] VITALS: BP 149/88; PULSE 86; RESP 18; O2SAT 97
== END 2023-06-28 06:24 | disposition home or self-care (01) ==
PROVIDERS: Emergency Provider Emergency Medicine; PCP Family Medicine Geriatric Medicine; Visit Provider Emergency Medicine
DX: R45.851 Suicidal ideations (principal); F10.129 Alcohol abuse with intoxication, unspecified; F17.290 Nicotine dependence, other tobacco product, uncomplicated; Z79.899 Other long term (current) drug therapy
CPT/HCPCS: 80048; 80307; 81001; 82077; 85025; 99285; A4216

== ENCOUNTER → 2025-01-04 | Outpatient (CLI) | payer MEDICARE, SELFPAY ==
[2025-01-04 17:37] LABS: Basophil# 0.07 X10^3/uL; Basophil% 1.6 % (0-1); Eosinophil# 0.34 X10^3/uL; Eosinophils% 7.8 % (0-5); Hematocrit 30.3 % (37-47); Hemoglobin 8.3 g/dL (12.0-15.0); Mean Corp Hgb Conc 27.4 g/dL (32-36); Mean Corpuscular Hgb 18.9 pg (27.0-32.0); Mean Corpuscular Volume 68.9 fL (81-99); Mean Platelet Vol. 9.3 fl (6.2-12.0); Monocyte# 0.52 X10^3/uL; Monocyte% 11.9 % (0-10); NRBC Flagged by Analyzer 0 % (0-5); Neutrophil # 2.03 X10^3/uL (2.7-7.7); Neutrophil % 46.2 % (47-70); POSITIVE MORPHOLOGY YES; Platelet Count 372 K/mm3 (150-450); RBC Distribution Width CV 20.4 % (11.6-14.6); White Blood Count 4.4 K/mm3 (4.4-11.0)
[2025-01-04 17:39] LABS: Differential Indicated SCAN CRITERIA MET
[2025-01-04 17:57] LABS: Anisocytosis 2+; Differential Comment SCANNED
[2025-01-04 18:00] LABS: ALB/GLOB Ratio 0.8 RATIO (0.9-2.4); AST(SGOT) 25 U/L (15-37); Alanine Aminotransfer ALT/SGPT 25 U/L (13-56); Albumin, Serum 3.6 g/dL (3.2-5.0); Alkaline Phosphatase 110 U/L (45-117); Anion Gap 8 (5-15); BUN 13 mg/dL (7-18); BUN/Creat Ratio 15.6 RATIO (10-20); Chloride 104 mmol/L (98-107); Cholesterol 243 mg/dL (200); Creatinine, Serum 0.84 mg/dL (0.55-1.02); EST Glomerular Filtration Rate 73 mL/min (>60); Est Glom Filt Rate - Afr Amer 88 mL/min (>60); Globulin 4.3 g/dL (2.2-4.2); Glucose 96 mg/dL (74-106); High Density Lipoprotein 104 mg/dL; Potassium 4.2 mmol/L (3.5-5.1); Protein, Total 7.9 g/dL (6.4-8.2); Sodium Level 138 mmol/L (136-145); Triglycerides 150 mg/dL; Very Low Density Lipoprotein 30 mg/dL (5-40)
[2025-01-04 18:58] LABS: Hemoglobin A1c 5.3 % (3.8-5.6)
[2025-01-05 14:30] LABS: Vitamin B12 238 pg/mL (211-911); Vitamin D,25 Hydroxy 30.4 ng/mL
== END | disposition home or self-care (01) ==
LOC: VSLAB 16:03
PROVIDERS: PCP Nurse Practitioner Family; Visit Provider Nurse Practitioner Family
DX: R03.0 Elevated blood-pressure reading, without diagnosis of hypertension (principal); E56.9 Vitamin deficiency, unspecified; Z13.1 Encounter for screening for diabetes mellitus
CPT/HCPCS: 36415; 80053; 80061; 82306; 82607; 83036; 84443; 85025

== ENCOUNTER → 2025-01-11 | Outpatient (CLI) | payer MEDICARE, SELFPAY ==
[2025-01-11 21:44] LABS: Iron 12 ug/dL (50-170)
[2025-01-12 00:43] LABS: Iron Binding Capacity,Total 494 ug/dL (250-450); PERCENT IRON SATURATION 2.4 % (15.0-55.0)
== END | disposition home or self-care (01) ==
LOC: VSLAB 16:52
PROVIDERS: PCP Nurse Practitioner Family; Visit Provider Nurse Practitioner Family
DX: D64.9 Anemia, unspecified (principal)
CPT/HCPCS: 36415; 83540; 83550

== ENCOUNTER → 2025-01-25 | Outpatient (CLI) | payer MEDICARE, SELFPAY | END | disposition home or self-care (01) | LOC: LABSPEC 16:09 | PROVIDERS: PCP Nurse Practitioner Family; Visit Provider Nurse Practitioner Family | DX: D64.9 Anemia, unspecified (principal) | CPT/HCPCS: 82274 ==

== ENCOUNTER → 2025-02-03 | Outpatient (CLI) | payer MEDICARE, SELFPAY ==
--- NOTE | 2025-02-03 18:10 | CT_ITS ---
PROCEDURE: LOW DOSE CT LUNG SCREENING 02/03/2025 REASON FOR EXAM: NICOTINE DEPENDENCE TECHNIQUE: Low Dose CT Lung screening without contrast. Coronal and Sagittal reconstruction series were provided. One or more dose reduction techniques were used (e.g., Automated exposure control, adjustment of the mA and/or kV according to patient size, use of iterative reconstruction technique). REFERENCE LINK: [employer] Lung-RADS RADIATION DOSE SUMMARY: CTDlvol: 3.02 mGy DLP: 96.28 mGycm COMPARISON: None. FINDINGS: PULMONARY NODULES: (Only nodules >3mm are reported) Pulmonary Nodules: None detected Hardware: None Lymph Nodes: No lymphadenopathy Heart and Vasculature: The heart is normal in size. The thoracic aorta and pulmonary arteries are normal in caliber. Coronary Artery Calcifications: None Lungs and Airways: Clear Pleura: Normal Upper Abdomen: Normal Bones: Unremarkable CT/Low Dose CT Lung Screening IMPRESSION: No suspicious pulmonary nodules. Coronary artery calcification (CAC) is 0 Lung-RADS Category: 1 Other Significant Findings: None. Reading Location: [facility]
== END | disposition home or self-care (01) ==
PROVIDERS: PCP Nurse Practitioner Family; Referring Provider Nurse Practitioner Family; Visit Provider Nurse Practitioner Family
DX: Z12.2 Encounter for screening for malignant neoplasm of respiratory organs (principal); Z87.891 Personal history of nicotine dependence
CPT/HCPCS: 71271

== ENCOUNTER → 2025-05-16 | Outpatient (CLI) | payer MEDICARE, SELFPAY ==
--- NOTE | 2025-05-16 15:24 | RAD_ITS ---
PROCEDURE: RIBS UNIL 2V NO CXR 05/16/2025 REASON FOR EXAM: Chest and rib pain TECHNIQUE: RIBS UNIL 2V NO CXR COMPARISON: CT chest from 02/03/2025 FINDINGS: Study is limited due to underexposure. Findings: No demonstrated acute displaced rib fracture, pleural thickening or pneumothorax. However, rib fractures can be subtle. If there is strong clinical suspicion of a rib fracture, recommend further evaluation with limited CT Other: No acute pulmonary process RAD/Ribs Unil 2V No CXR IMPRESSION: No demonstrated rib fracture, pleural thickening or pneumothorax Reading Location: [id number]
--- NOTE | 2025-05-16 15:24 | RAD_ITS ---
PROCEDURE: HIPS B/L MIN 2 VIEWS W/ PELVIS 05/16/2025 REASON FOR EXAM: PAIN IN RIGHT AND LEFT HIP TECHNIQUE: HIPS B/L MIN 2 VIEWS W/ PELVIS COMPARISON: None FINDINGS: Bones: No fracture or suspicious osseous lesion. Joints: Age consistent left hip and SI joint arthrosis without subchondral change. The right hip has been replaced. Alignment is anatomic with no plain film evidence of hardware complication or failure Soft tissues: Lucent centered phleboliths noted in the pelvis. Other: RAD/Hips B/L min 2 views w/ Pelvis IMPRESSION: Age consistent left hip and SI joint arthrosis, no fracture or suspicious osseo us lesion Replaced right hip joint free of complication Reading Location: [id number]
--- NOTE | 2025-05-16 15:24 | RAD_ITS ---
PROCEDURE: THORACIC SPINE 3 VIEWS 05/16/2025 REASON FOR EXAM: PAIN IN THORACIC SPINE TECHNIQUE: THORACIC SPINE 3 VIEWS COMPARISON: None FINDINGS: There is slight levo curvature of the lower thoracic upper lumbar region with less than 10 degrees of variance, which can indicate spasm. Vertebral body height and alignment are maintained. There is loss of disc height throughout the thoracic region. Osteopenia is noted. Surgical clips are present in the left upper abdomen. RAD/Thoracic Spine 3 Views IMPRESSION: There is slight levo curvature of the lower thoracic upper lumbar region with l ess than 10 degrees of variance, which can indicate spasm. There is loss of disc height throughout the thoracic region. Reading Location: [facility]
== END | disposition home or self-care (01) ==
LOC: MTRAD 15:21
PROVIDERS: PCP Nurse Practitioner Family; Referring Provider Nurse Practitioner Family; Visit Provider Nurse Practitioner Family
DX: M25.552 Pain in left hip (principal); M25.551 Pain in right hip
CPT/HCPCS: 71100; 72072; 73521

== ENCOUNTER → 2025-06-06 | Outpatient (CLI) | payer MEDICARE, SELFPAY ==
[2025-06-06 16:37] LABS: Hematocrit 35.3 % (37-47); Hemoglobin 10.2 g/dL (12.0-15.0); Immature Granulocytes Count 0.010 X10^3/uL (0.0-0.0); Mean Corp Hgb Conc 28.9 g/dL (32-36); Mean Corpuscular Volume 69.4 fL (81-99); Mean Platelet Vol. 9.5 fl (6.2-12.0); NRBC Flagged by Analyzer 0 % (0-5); Platelet Count 368 K/mm3 (150-450); RBC Distribution Width CV 19.2 % (11.6-14.6); RBC Distribution Width SD 47.7 fl (35.1-43.9); Red Blood Count 5.09 M/mm3 (4.2-5.4); White Blood Count 5.6 K/mm3 (4.4-11.0)
[2025-06-06 17:28] LABS: Ferritin 11 ng/mL (22-378); Iron 20 ug/dL (50-170); Iron Binding Capacity,Unsat 439 ug/dL (228-428)
[2025-06-06 18:32] LABS: Iron Binding Capacity,Total 459 ug/dL (250-450)
== END | disposition home or self-care (01) ==
LOC: VSLAB 11:10
PROVIDERS: PCP Nurse Practitioner Family
DX: D50.9 Iron deficiency anemia, unspecified (principal)
CPT/HCPCS: 36415; 82728; 83540; 83550; 85025